=== PATIENT | male | born 1945 | race Caucasian/White ===

== ENCOUNTER 2017-01-07 20:49 | Inpatient (IN) | payer MEDICARE, OTHER ==
[2017-01-07] MEDS ORDERED: NS 0.9% 1000 ML* 1,000 ML IV ONE (21:26)
[2017-01-07 22:04] LABS: Hematocrit 40 % (42-52); Mean Corpuscular HGB Conc 32 g/dl (31-36); Mean Corpuscular Hemoglobin 29 pg (27-31); Mean Corpuscular Volume 90 fL (80-94); Mean Platelet Volume 9 um3 (7.4-10.4); Red Blood Count 4.45 10^6/ul (4.0-5.4); Red Cell Distribution Width 15 % (10.5-15); White Blood Count 12.3 10^3/ul (3.5-10.8)
--- NOTE | 2017-01-07 22:09 | RAD ---
INDICATION: RIGHT lower quadrant abdominal pain. History of chronic lymphoid leukemia. COMPARISON: February 28, 2014 CT. TECHNIQUE: Multidetector CT images were obtained from the lung bases to the ischial tuberosities. Evaluation of the viscera is limited without IV contrast. Multiplanar reformation. REPORT: Minimal bibasilar atelectasis or pleural-parenchymal scarring. Coronary artery calcifications. Unremarkable liver. Largely decompressed gallbladder without CT abnormality. Negative for biliary dilatation. Unremarkable pancreas. 12 cm cephalocaudal spleen decreased from 16 cm on the prior exam. Unremarkable upper GI and small bowel. Enteric contrast extends to the proximal transverse colon. Severely dilated retrocecal appendix measuring up to 2.5 cm diameter. No appendicolith visualized. Severe periappendiceal inflammatory stranding including a small volume of RIGHT lower quadrant fluid. 3.6 cm AP by 2.1 cm transverse by 5.8 cm cephalocaudal early loculated fluid collection visualized inferior and anterior to the appendix consistent with early periappendiceal abscess. A punctate focus of gas is noted within the loculated collection. Mild diverticulosis of the sigmoid colon without acute acute inflammatory change. Negative for significant hernias. Normal adrenal glands. Unremarkable kidneys, nondilated ureters, and urinary bladder. Symmetric seminal vesicles. Subcentimeter short axis RIGHT lower quadrant mesenteric lymph nodes. Negative for lymphadenopathy. Atherosclerotic calcification of normal diameter abdominal aorta. 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 Lumbar sacral spine degenerative spondylosis and facet joint osteoarthritis. Negative for suspicious focal osseous lesions. Spangler images saved on the [facility] [place] PACS. IMPRESSION: 1. Acute appendicitis with suggestion of associated early small volume of periappendiceal abscess. Negative for resulting bowel obstruction. 2. Resolution of previous splenomegaly. 3. Negative for lymphadenopathy.
[2017-01-07 22:18] LABS: Albumin 3.4 g/dL (3.2-5.2); BUN/Creatinine Ratio 18.8 (8-20); C Reactive Protein 60.2 mg/L (< 5.00); Calcium 8.7 mg/dL (8.6-10.3); EGFR African American 93.9 (>60); Globulin 2.6 g/dL (2-4); Total Bilirubin 0.6 mg/dL (0.2-1.0)
[2017-01-07] MEDS ORDERED: Albuterol/Ipratropium NEB.SOL* Albuterol 2.5 MG/Ipratropium 0.5 MG 3 ML INH PRN (22:46)
[2017-01-07] MEDS ORDERED: Albuterol HFA INHALER* 8 gm MDI INH PRN (22:49)
[2017-01-07] MEDS ORDERED: Ondansetron INJ* 2 MG/ML VIAL IV PRN (22:51)
--- NOTE | 2017-01-07 22:55 | ED ---
Remedios Joiner Erika, scribed for Emigdio Berkowitz MD on 01/07/17 at 2152 . Abdominal Pain/Male - HPI Summary HPI Summary: Patient is a 71-year-old male presenting to the ED with a CC of abdominal pain. Patient reports that he developed intermittent diffuse abdominal pain and bloating 1 week ago, which has been gradually worsening since. Today, patient noticed that the worst pain to palpation was at the RLQ. He rates pain a 3/10 at rest, but a 6/10 with palpation of the RLQ. Patient also reports that he was constipated this past week, with his first normal BM this morning. Pt states a temperature max of 99.5. He denies flank pain, nausea, blood in stools, and burning with urination. He does report chronic frequent urination due to BPH. He denies Hx abdominal surgeries. FHx aortic aneurysm. - History of Current Complaint Chief Complaint: EDAbdPain Stated Complaint: ABD PAIN/POSS FEVER Time Seen by Provider: 01/07/17 21:03 Hx Obtained From: Patient Onset/Duration: Gradual Onset, Lasting Weeks - 1 week, Still Present Timing: Constant Severity Initially: Mild Severity Currently: Moderate Pain Intensity: 3 Pain Scale Used: 0-10 Numeric Location: Diffuse, Other - worse at RLQ Aggravating Factor(s): Other: - palpation Associated Signs And Symptoms: Positive: Constipation. Negative: Blood in Stool , Nausea - Allergies/Home Medications Allergies/Adverse Reactions: Allergies Allergy/AdvReac Type Severity Reaction Status Date / Time Allopurinol Allergy Rash Verified 01/07/17 21:15 Penicillins Allergy Rash Verified 01/07/17 21:15 Shellfish Allergy Allergy Hives/Diff. Verified 01/07/17 21:15 Breathing/I tching contrast dye Allergy Hives/Diff. Uncoded 01/07/17 21:15 Breathing/I tching PMH/Surg Hx/FS Hx/Imm Hx Endocrine/Hematology History: Reports: Hx Blood Disorders - CLL Respiratory History: Reports: Hx Chronic Bronchitis, Hx Sleep Apnea Musculoskeletal History: Reports: Hx Arthritis Sensory History: Reports: Hx Contacts or Glasses Opthamlomology History: Reports: Hx Contacts or Glasses Psychiatric History: Reports: Hx Anxiety - Cancer History Cancer Type, Location and Year: CLL Dx 2000 - Surgical History Surgery Procedure, Year, and Place: broken leg 84 Hx Anesthesia Reactions: No Infectious Disease History: No Infectious Disease History: Reports: Traveled Outside the [place] in Last 30 Days - [place] - Family History Known Family History: Positive: Cardiac Disease, Diabetes, Other - CVA - Social History Occupation: Retired Alcohol Use: None Hx Substance Use: No Substance Use Type: Reports: None Hx Tobacco Use: Yes Smoking Status (MU): Former Smoker Type: Cigarettes Amount Used/How Often: 1ppd Length of Time of Smoking/Using Tobacco: 50 years Have You Smoked in the Last Year: No Review of Systems Gastrointestinal: Other - constipation Positive: Abdominal Pain. Negative: Nausea Positive: frequency - baseline. Negative: dysuria, flank pain All Other Systems Reviewed And Are Negative: Yes Physical Exam Triage Information Reviewed: Yes Vital Signs On Initial Exam: Initial Vitals Temp Pulse Resp BP Pulse Ox 99.8 F 75 15 152/78 97 01/07/17 20:52 01/07/17 20:52 01/07/17 20:52 01/07/17 20:52 01/07/17 20:52 Vital Signs Reviewed: Yes Appearance: Positive: Well-Appearing, No Pain Distress Skin: Positive: Warm, Skin Color Reflects Adequate Perfusion, Dry Head/Face: Positive: Normal Head/Face Inspection Eyes: Positive: EOMI, AISHWARYA ENT: Positive: Normal ENT inspection Neck: Positive: Supple, Nontender Respiratory/Lung Sounds: Positive: Clear to Auscultation, Breath Sounds Present Cardiovascular: Positive: RRR Abdomen Description: Positive: Soft, Other: - Tender RLQ and right mid abdomen Bowel Sounds: Positive: Present Musculoskeletal: Positive: Normal, Strength/ROM Intact Neurological: Positive: Normal, Sensory/Motor Intact, Alert, Oriented to Person Place, Time Psychiatric: Positive: Affect/Mood Appropriate Diagnostics - Vital Signs Vital Signs Temp Pulse Resp BP Pulse Ox 01/07/17 20:52 99.8 F 75 15 152/78 97 - Laboratory Lab Results: Lab Results 01/07/17 01/07/17 01/07/17 Range/Units 21:50 21:50 21:50 WBC 12.3 H (3.5-10.8) 10^3/ul RBC 4.45 (4.0-5.4) 10^6/ul Hgb 13.0 L (14.0-18.0) g/dl Hct 40 L (42-52) % MCV 90 (80-94) fL MCH 29 (27-31) pg MCHC 32 (31-36) g/dl RDW 15 (10.5-15) % Plt Count 150 (150-450) 10^3/ul MPV 9 (7.4-10.4) um3 Neut % (Auto) 77.4 (38-83) % Lymph % (Auto) 13.4 L (25-47) % Traverse % (Auto) 6.7 (1-9) % Eos % (Auto) 1.9 (0-6) % Baso % (Auto) 0.6 (0-2) % Absolute Neuts (auto) 9.5 H (1.5-7.7) 10^3/ul Absolute Lymphs (auto) 1.6 (1.0-4.8) 10^3/ul Absolute Monos (auto) 0.8 (0-0.8) 10^3/ul Absolute Eos (auto) 0.2 (0-0.6) 10^3/ul Absolute Basos (auto) 0.1 (0-0.2) 10^3/ul Absolute Nucleated RBC 0.01 10^3/ul Nucleated RBC % 0.1 INR (Anticoag Therapy) 0.99 (0.89-1.11) APTT 30.0 (26.0-36.3) seconds Sodium 138 (133-145) mmol/L Potassium 4.0 (3.5-5.0) mmol/L Chloride 106 (101-111) mmol/L Carbon Dioxide 24 (22-32) mmol/L Anion Gap 8 (2-11) mmol/L BUN 19 (6-24) mg/dL Creatinine 1.01 (0.67-1.17) mg/dL Est GFR ( Amer) 93.9 (>60) Est GFR (Non-Af Amer) 73.0 (>60) BUN/Creatinine Ratio 18.8 (8-20) Glucose 89 (70-100) mg/dL Lactic Acid (0.5-2.0) mmol/L Calcium 8.7 (8.6-10.3) mg/dL Total Bilirubin 0.60 (0.2-1.0) mg/dL AST 17 (13-39) U/L ALT 16 (7-52) U/L Alkaline Phosphatase 88 (34-104) U/L C-Reactive Protein 60.20 H (< 5.00) mg/L Total Protein 6.0 L (6.4-8.9) g/dL Albumin 3.4 (3.2-5.2) g/dL Globulin 2.6 (2-4) g/dL Albumin/Globulin Ratio 1.3 (1-3) Lipase 17 (11.0-82.0) U/L 01/07/17 Range/Units 21:50 WBC (3.5-10.8) 10^3/ul RBC (4.0-5.4) 10^6/ul Hgb (14.0-18.0) g/dl Hct (42-52) % MCV (80-94) fL MCH (27-31) pg MCHC (31-36) g/dl RDW (10.5-15) % Plt Count (150-450) 10^3/ul MPV (7.4-10.4) um3 Neut % (Auto) (38-83) % Lymph % (Auto) (25-47) % Traverse % (Auto) (1-9) % Eos % (Auto) (0-6) % Baso % (Auto) (0-2) % Absolute Neuts (auto) (1.5-7.7) 10^3/ul Absolute Lymphs (auto) (1.0-4.8) 10^3/ul Absolute Monos (auto) (0-0.8) 10^3/ul Absolute Eos (auto) (0-0.6) 10^3/ul Absolute Basos (auto) (0-0.2) 10^3/ul Absolute Nucleated RBC 10^3/ul Nucleated RBC % INR (Anticoag Therapy) (0.89-1.11) APTT (26.0-36.3) seconds Sodium (133-145) mmol/L Potassium (3.5-5.0) mmol/L Chloride (101-111) mmol/L Carbon Dioxide (22-32) mmol/L Anion Gap (2-11) mmol/L BUN (6-24) mg/dL Creatinine (0.67-1.17) mg/dL Est GFR ( Amer) (>60) Est GFR (Non-Af Amer) (>60) BUN/Creatinine Ratio (8-20) Glucose (70-100) mg/dL Lactic Acid 0.7 (0.5-2.0) mmol/L Calcium (8.6-10.3) mg/dL Total Bilirubin (0.2-1.0) mg/dL AST (13-39) U/L ALT (7-52) U/L Alkaline Phosphatase (34-104) U/L C-Reactive Protein (< 5.00) mg/L Total Protein (6.4-8.9) g/dL Albumin (3.2-5.2) g/dL Globulin (2-4) g/dL Albumin/Globulin Ratio (1-3) Lipase (11.0-82.0) U/L Result Diagrams: 01/07/17 21:50 01/07/17 21:50 Lab Statement: Any lab studies that have been ordered have been reviewed, and results considered in the medical decision making process. - CT CT A/P W/O CT Interpretation Completed By: Radiologist - IMPRESSION: 1. Acute appendicitis with suggestion of associated early small volume of periappendiceal abscess. Negative for resulting bowel obstruction. 2. Resolution of previous splenomegaly. 3. Negative for lymphadenopathy. Re-Evaluation - Re-Evaluation First Eval Re-Evaluation Time: 22:37 Comment: Discussed results and need for appendectomy Abdominal Pain Fem Course/Dx - Course Course Of Treatment: NO CRITICAL CARE TIME Assessment/Plan: WELL I ED. DISCUSSED RESULTS WITH PATIENT/FAMILY. ADMIT SURGERY STABLE. - Diagnoses Provider Diagnoses: Appendicitis with abscess - Provider Notifications Discussed Care Of Patient With: Dr. Patrick (surgery) at 22:29 - discussed CT finding of appendicitis and patient's history. will admit to surgery. Discharge - Discharge Plan Condition: Stable Disposition: ADMITTED TO [facility] documentation as recorded by the Remedios morales Erika accurately reflects the service I personally performed and the decisions made by me, Emigdio Berkowitz MD.
[2017-01-07] MEDS: Ciprofloxacin 400MG IVPREMIX(* 400 MG/200 ML BAG IVPB SCH (23:57)
[2017-01-07] MEDS: Mometasone/Formoter 100/5 MDI INH SCH (23:58)
[2017-01-08] MEDS: Morphine INJ* 4 MG/ML 1 ML SYRINGE IV PRN ×2 (00:03→04:07)
[2017-01-08 00:18] LABS: Urine Bilirubin Negative (Negative); Urine Glucose Negative (Negative); Urine Nitrite Negative (Negative)
[2017-01-08] MEDS: metroNIDAZOLE IV 500 MG/100ML* 500 MG/100 ML BAG IVPB SCH ×4 (01:07→17:39)
[2017-01-08] MEDS: Mometasone/Formoter 100/5 MDI INH SCH ×2 (08:08→20:37)
--- NOTE | 2017-01-08 08:35 | RAD ---
Indication: Preoperative assessment for appendicitis. Occasional shortness of breath. Comparison: January 07, [address] Technique: Upright AP 2305 hours Report: Minimal linear atelectasis at the peripheral LEFT mid lung zone. Negative for pleural effusion or pneumothorax. Costochondral calcifications noted most prominent at the first ribs. The heart, pulmonary vasculature, and mediastinal contours are unremarkable. Negative for free air beneath the diaphragm. IMPRESSION: No evidence for acute intrathoracic disease.
[2017-01-08] MEDS ORDERED: Ketorolac INJ* 30 MG/ML 1 ML VIAL IV PRN (09:13)
[2017-01-08 10:18] LABS: Hematocrit 39 % (42-52); Hemoglobin 12.5 g/dl (14.0-18.0); Mean Corpuscular HGB Conc 32 g/dl (31-36); Mean Corpuscular Hemoglobin 29 pg (27-31); Mean Corpuscular Volume 91 fL (80-94); Mean Platelet Volume 9 um3 (7.4-10.4); Red Blood Count 4.28 10^6/ul (4.0-5.4); Red Cell Distribution Width 15 % (10.5-15); White Blood Count 12.2 10^3/ul (3.5-10.8)
[2017-01-08 10:35] LABS: BUN/Creatinine Ratio 13.9 (8-20); Calcium 8.3 mg/dL (8.6-10.3); EGFR African American 93.9 (>60); Potassium 4.2 mmol/L (3.5-5.0)
[2017-01-08] MEDS: Ciprofloxacin 400MG IVPREMIX(* 400 MG/200 ML BAG IVPB SCH ×2 (11:28→23:54)
--- NOTE | 2017-01-08 13:04 | HP ---
HISTORY AND PHYSICAL: DATE OF ADMISSION: 01/08/17 CHIEF COMPLAINT: Right lower quadrant abdominal pain. HISTORY OF PRESENT ILLNESS: This is a 71-year-old gentleman with a history of coronary artery disease, COPD, and CLL, who presented to the [facility] Emergency Room with a 6-day history of abdominal pain, progressive in nature, localized into the right lower quadrant, associated with low-grade fever , loss of appetite, no nausea, no vomiting, no diarrhea or constipation. The patient had pain initiating when he was driving back from [facility], last Monday. He reports that he sometimes has back pain if he is riding in the car for long periods of time. This pain seemed to be in the abdomen, however, and he then thought it may be related to constipation, which he has had occasionally in the past. He reports that the pain was not severe enough for him to take any pain medication, but he did try taking Pepto-Bismol without relief. Yesterday, his pain seemed to be more severe and seemed more localized to the right lower quadrant. He had noted a temperature of 99.5 as well. He looked up the symptoms and was worried he had appendicitis, so went to the emergency room. In the emergency room, he was evaluated by Dr. Berkowitz. Due to history of allergic reaction to CONTRAST DYE, he had a noncontrast CT of the abdomen and pelvis. The scan showed evidence of appendicitis with periappendiceal abscess and there was a focus of gas within the loculated collection. The collection was 3.6 x 2[address] Berkowitz requested surgical admission for this patient. PAST MEDICAL HISTORY: Significant for COPD, coronary artery disease, angina, CLL, right leg fracture, obesity, obstructive sleep apnea, depression, spinal stenosis, hyperlipidemia, hypertension, osteoarthritis, BPH. PAST SURGICAL HISTORY: He had ORIF of the right leg. MEDICATIONS: 1. Aspirin. 2. Clonazepam. 3. Zolpidem. 4. Viagra. 5. Nitroglycerin. ALLERGIES: ALLOPURINOL has caused a rash; PENICILLIN caused a rash and swelling ; SHELLFISH causes hives, difficulty breathing, and itching; CONTRAST DYE causes hives, difficulty breathing, and itching. FAMILY HISTORY: Father had abdominal aortic aneurysm and is alive. His mother in her 80s of unknown causes. SOCIAL HISTORY: He has a 40- to 19-pojn-owbs history of smoking. He quit 17 years ago. He has a history of alcohol abuse and quit 12 years ago. He denies any drug use. REVIEW OF SYSTEMS: Constitutional: Low-grade fevers, no chills, no weight loss. Respiratory: Wheezing, coughing, and smoking history. Cardiac: Angina for which he has been seeing Dr. Chapman and had been prescribed nitroglycerin. He uses nitroglycerin p.r.n. and last used it 2 days ago. At present, he is having no chest pain. Gastrointestinal: He had a history of colonoscopy in 2003, which was normal. He has done fecal occult blood testing since which he reports has been normal. Others symptoms as above. He had a bowel movement yesterday which was normal with no blood. : The patient reports a history of enlarged prostate. He gets up frequently in the night to urinate. Endocrine : He denies thyroid disease or diabetes. Hematologic: As above. Musculoskeletal: As above. CAPTAIN OF GUARDS: He denies stroke, seizures, or neurologic symptoms. PHYSICAL EXAMINATION VITAL SIGNS: He is 5 feet 8 inches tall, 230 pounds, BMI is 35. He has temperature of 98.4, blood pressure of 123/67, pulse is 69, respirations 20, O2 sat 93% on room air. HEENT: Head is normocephalic and atraumatic. His sclerae are anicteric. His mucous membranes are moist. He has no otorrhea, no rhinorrhea. Dentition is poor with chipped teeth and some missing teeth, but no loose teeth. NECK: Symmetrical with midline trachea. No palpable lymphadenopathy or masses. LUNGS: Clear bilaterally with expiratory wheezes bilaterally. No rales or rhonchi. HEART: Regular S1 and S2 with no appreciable murmurs, rubs, or gallops. ABDOMEN: Without scars and it is obese. Bowel sounds are present. It is nondistended, it is soft. There is tenderness in the right lower quadrant with some firmness but no discrete mass. He has no Rovsing's sign. EXTREMITIES: Warm without clubbing, cyanosis, or edema. DIAGNOSTIC STUDIES/LAB DATA: Notable for a WBC of 12.3, hemoglobin 13, hematocrit of 40, platelets 150. Chemistries normal except for his total protein low at 6. His C-reactive protein is 60. Coagulation profile showed normal INR and PTT. Urinalysis was negative for infection. CT scan findings were as reported above. IMPRESSION: The patient is a 71-year-old gentleman with chronic obstructive pulmonary disease, coronary artery disease, history of chronic lymphocytic leukemia, now with what appears to be missed appendicitis with early abscess formation noted on the CT scan. He is not in need of any emergent surgery. I believe he will best be managed nonoperatively. PLAN/RECOMMENDATIONS: NPO. Ciprofloxacin and metronidazole IV. IV hydration. IV analgesics. DVT prophylaxis. Consult hospitalist for assistance in management of cardiopulmonary disease and optimization should the patient fail nonoperative treatment. Ultimately, he may require percutaneous drainage of this developing abscess. I discussed the plan with the patient, who had all questions answered. He stated his understanding and was in agreement. [id number]/CPS #: [id number] MTDD
[2017-01-08] MEDS ORDERED: Albuterol HFA INHALER* 8 gm MDI INH PRN (13:20)
[2017-01-08] MEDS ORDERED: clonazePAM TAB(*) 0.5 MG PO PRN (13:20)
[2017-01-08] MEDS ORDERED: Saline NASAL SPRAY 0.65%* BTL BOTH NARES PRN (13:20)
[2017-01-08] MEDS ORDERED: Zolpidem TAB* 10 MG PO PRN (13:20)
[2017-01-08] MEDS: Heparin VIAL(*) 5000 UNITS/ML VIAL (FIVE THOUSAND) SUBCUT SCH ×2 (14:06→22:34)
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
[2017-01-09] MEDS: metroNIDAZOLE IV 500 MG/100ML* 500 MG/100 ML BAG IVPB SCH ×4 (00:59→18:01)
[2017-01-09 05:37] LABS: HDL Cholesterol 37.6 mg/dL
[2017-01-09] MEDS: Heparin VIAL(*) 5000 UNITS/ML VIAL (FIVE THOUSAND) SUBCUT SCH ×3 (05:54→21:40)
[2017-01-09] MEDS: Ascorbic Acid TAB* 500 MG PO SCH (08:19)
[2017-01-09] MEDS: Cholecalciferol TAB* 1000 UNITS PO SCH (08:20)
[2017-01-09] MEDS: Multivitamins/Minerals TAB PO SCH (08:20)
[2017-01-09] MEDS: Atorvastatin* 40 MG TAB PO SCH (08:29)
[2017-01-09] MEDS: Mometasone/Formoter 100/5 MDI INH SCH ×2 (08:30→19:35)
--- NOTE | 2017-01-09 11:03 | SURGPN ---
Subjective - Introduction -: Reports doing well, less pain. Feels a little hungry. Passing flatus, denies N/V , fever or chills. - Medications -: Active Medications Generic Name Dose Route Start Last Admin Trade Name Freq PRN Reason Stop Dose Admin Albuterol 2 puff 01/07/17 22:49 Ventolin Hfa Inhaler* INH [id number] AWAKE PRN DYSPNEA Albuterol 2 puff 01/08/17 13:20 Ventolin Hfa Inhaler* INH Q6HR PRN SOB/WHEEZING Albuterol/Ipratropium 1 neb 01/07/17 22:46 Duoneb (Albuterol 2.5 Mg/Ipratropium 0.5 Mg) INH [id number] AWAKE PRN DYSPNEA Ascorbic Acid 500 mg 01/09/17 09:00 01/09/17 08:19 Vitamin C Tab* PO Not Given DAILY [facility] Atorvastatin Calcium 40 mg 01/09/17 09:00 01/09/17 08:29 Lipitor* PO Not Given DAILY [facility] Cholecalciferol 2,000 units 01/09/17 09:00 01/09/17 08:20 Vitamin D Tab* PO Not Given DAILY [facility] Clonazepam 0.5 mg 01/08/17 13:20 Klonopin Tab(*) PO DAILY PRN ANXIETY - SEVERE Heparin Sodium (Porcine) 5,000 units 01/08/17 14:00 01/09/17 05:54 Heparin Vial(*) SUBCUT 5,000 units Q8HR [facility] Administration Ciprofloxacin/Dextrose 400 mg in 200 mls @ 200 mls/hr 01/07/17 23:30 23:54 Cipro 400 Mg Ivpremix(*) IVPB 200 mls/hr Q12H [facility] Administration Lactated Ringer's 1,000 mls @ 150 mls/hr 01/07/17 23:00 01/09/17 04:33 Lactated Ringers 1000 Ml Bag* IV 150 mls/hr PER RATE [facility] Administration Metronidazole/Sodium Chloride 500 mg in 100 mls @ 100 mls/hr 01/08/17 00:00 01/09/17 05:54 Flagyl 500 Mg Ivpb* IVPB 100 mls/hr Q6H [facility] Administration Ketorolac Tromethamine 15 mg 01/08/17 09:13 Toradol Inj* IV 01/10/17 09:14 Q6H PRN PAIN Mometasone Furoate/Formoterol Fumar 2 puff 01/07/17 23:00 01/09/17 08:30 Dulera 100/5 Mdi* INH 2 puff BID [facility] Administration Morphine Sulfate 4 mg 01/07/17 22:52 01/08/17 04:07 Morphine Inj (Syringe)* IV 4 mg Q4H PRN Administration PAIN Multivitamins/Minerals 1 tab 01/09/17 09:00 01/09/17 08:20 Theragran/Minerals Tab* PO Not Given DAILY [facility] Ondansetron HCl 4 mg 01/07/17 22:51 Zofran Inj* IV Q4H PRN NAUSEA Sodium Chloride 2 spray 01/08/17 13:20 Sodium Chloride 0.65% Nasal [place]* BOTH NARES DAILY PRN CONGESTION Zolpidem Tartrate 10 mg 01/08/17 13:20 Ambien Tab* PO BEDTIME PRN ANXIETY/INSOMNIA Objective - Objective -: Awake and alert, sitting on bed, appears comfortable. - Intake and Output -: Intake & Output 01/07/17 01/08/17 01/09/17 01/10/17 06:59 06:59 06:59 06:59 Intake Total 4398 Output Total 1000 Balance 3398 Intake: IV Fluids 3236 LR 2827 abx 409 IVPB 537 abx 537 Oral 625 Output: Urine 1000 Other: Estimated Void Large # Voids 1 1 Surgical Physical Exam - Comments -: VSS, afebrile. Lungs CTA bilat. Heart RRR, no murmurs Abdomen soft, non-distended. Mild RLQ tenderness, but no guarding or rebound. Ext. no edema Assessment and Plan - Assessment -: A 71 y/o with perforated appendicitis, doing well on IV antibiotics and bowel rest. - Plan Additional Comments: Continue IV Abx Ambulate as tolerated. Will d/w Dr. Patrick if it's OK to start patient on sips of clears today check labs in AM
[2017-01-09] MEDS: Ciprofloxacin 400MG IVPREMIX(* 400 MG/200 ML BAG IVPB SCH ×2 (11:24→23:23)
--- NOTE | 2017-01-09 19:08 | PN ---
Subjective Date of Service: 01/09/17 Interval History: Pt examined today at the bedside. He states that his abdomen is feeling better. Denies chest pain and states his breathing is better. Denies fever or chills. ROS-denies fever, denies chills, denies chest pain, denies sob, admits to abdominal pain, denies nausea, denies vomiting, denies lightheadedness, denies loc, review of 11 systems completed all others negative, Objective Active Medications: Albuterol (Ventolin Hfa Inhaler*) 2 puff INH [id number] AWAKE PRN PRN Reason: DYSPNEA Albuterol (Ventolin Hfa Inhaler*) 2 puff INH Q6HR PRN PRN Reason: SOB/WHEEZING Albuterol/Ipratropium (Duoneb (Albuterol 2.5 Mg/Ipratropium 0.5 Mg)) 1 neb INH [id number] AWAKE PRN PRN Reason: DYSPNEA Ascorbic Acid (Vitamin C Tab*) 500 mg PO DAILY [facility] Last Admin: 01/09/17 08:19 Dose: Not Given Atorvastatin Calcium (Lipitor*) 40 mg PO DAILY [facility] Last Admin: 01/09/17 08:29 Dose: Not Given Cholecalciferol (Vitamin D Tab*) 2,000 units PO DAILY [facility] Last Admin: 01/09/17 08:20 Dose: Not Given Clonazepam (Klonopin Tab(*)) 0.5 mg PO DAILY PRN PRN Reason: ANXIETY - SEVERE Heparin Sodium (Porcine) (Heparin Vial(*)) 5,000 units SUBCUT Q8HR [facility] Last Admin: 01/09/17 13:55 Dose: 5,000 units Ciprofloxacin/Dextrose (Cipro 400 Mg Ivpremix(*)) 400 mg in 200 mls @ 200 mls/ hr IVPB Q12H [facility] Last Admin: 01/09/17 11:24 Dose: 200 mls/hr Lactated Ringer's (Lactated Ringers 1000 Ml Bag*) 1,000 mls @ 150 mls/hr IV PER RATE [facility] Last Admin: 01/09/17 15:47 Dose: 150 mls/hr Metronidazole/Sodium Chloride (Flagyl 500 Mg Ivpb*) 500 mg in 100 mls @ 100 mls /hr IVPB Q6H [facility] Last Admin: 01/09/17 18:01 Dose: 100 mls/hr Ketorolac Tromethamine (Toradol Inj*) 15 mg IV Q6H PRN PRN Reason: PAIN Stop: 01/10/17 09:14 Mometasone Furoate/Formoterol Fumar (Dulera 100/5 Mdi*) 2 puff INH BID [facility] Last Admin: 01/09/17 08:30 Dose: 2 puff Mometasone Furoate/Formoterol Fumar (Dulera 200/5 Mdi*) 2 puff INH BID [facility] Morphine Sulfate (Morphine Inj (Syringe)*) 4 mg IV Q4H PRN PRN Reason: PAIN Last Admin: 01/08/17 04:07 Dose: 4 mg Multivitamins/Minerals (Theragran/Minerals Tab*) 1 tab PO DAILY [facility] Last Admin: 01/09/17 08:20 Dose: Not Given Ondansetron HCl (Zofran Inj*) 4 mg IV Q4H PRN PRN Reason: NAUSEA Sodium Chloride (Sodium Chloride 0.65% Nasal [place]*) 2 spray BOTH NARES DAILY PRN PRN Reason: CONGESTION Tiotropium [place] (Spiriva Cap.Inh*) 1 cap INH DAILY [facility] Zolpidem Tartrate (Ambien Tab*) 10 mg PO BEDTIME PRN PRN Reason: ANXIETY/INSOMNIA Vital Signs 01/08/17 01/08/17 01/08/17 19:15 20:50 23:30 Temperature 98.8 F 98.5 F Pulse Rate 71 71 Respiratory 16 16 16 Rate Blood Pressure 119/63 126/61 (mmHg) O2 Sat by Pulse 96 95 Oximetry 01/09/17 01/09/17 01/09/17 03:31 08:04 08:22 Temperature 98.6 F 98.0 F Pulse Rate 66 66 Respiratory 17 18 16 Rate Blood Pressure 124/73 118/70 (mmHg) O2 Sat by Pulse 96 96 Oximetry 01/09/17 01/09/17 12:00 15:30 Temperature 98.3 F 98.1 F Pulse Rate 64 63 Respiratory 18 17 Rate Blood Pressure 120/63 125/66 (mmHg) O2 Sat by Pulse 98 97 Oximetry Oxygen Devices in Use Now: None Appearance: 71 y/o male patient NAD, Eyes: No Scleral Icterus, PERRLA Ears/Nose/Mouth/Throat: NL Teeth, Lips, Gums Neck: NL Appearance and Movements; NL JVP Respiratory: Symmetrical Chest Expansion and Respiratory Effort, - - wheezing heard in lower lobes, Cardiovascular: NL Sounds; No Murmurs; No JVD Abdominal: - - tenderness to RLQ, bowel sounds present Extremities: No Edema Skin: No Rash or Ulcers Neurological: Alert and Oriented x 3 Lines/Tubes/Other Access: Clean, Dry and Intact Peripheral IV Result Diagrams: 01/08/17 09:50 01/08/17 09:50 Additional Lab and Data: Lab Results 01/07/17 01/07/17 01/07/17 Range/Units 21:50 21:50 21:50 WBC 12.3 H (3.5-10.8) 10^3/ul RBC 4.45 (4.0-5.4) 10^6/ul Hgb 13.0 L (14.0-18.0) g/dl Hct 40 L (42-52) % MCV 90 (80-94) fL MCH 29 (27-31) pg MCHC 32 (31-36) g/dl RDW 15 (10.5-15) % Plt Count 150 (150-450) 10^3/ul MPV 9 (7.4-10.4) um3 Neut % (Auto) 77.4 (38-83) % Lymph % (Auto) 13.4 L (25-47) % [place] % (Auto) 6.7 (1-9) % Eos % (Auto) 1.9 (0-6) % Baso % (Auto) 0.6 (0-2) % Absolute Neuts (auto) 9.5 H (1.5-7.7) 10^3/ul Absolute Lymphs (auto) 1.6 (1.0-4.8) 10^3/ul Absolute Monos (auto) 0.8 (0-0.8) 10^3/ul Absolute Eos (auto) 0.2 (0-0.6) 10^3/ul Absolute Basos (auto) 0.1 (0-0.2) 10^3/ul Absolute Nucleated RBC 0.01 10^3/ul Nucleated RBC % 0.1 INR (Anticoag Therapy) 0.99 (0.89-1.11) APTT 30.0 (26.0-36.3) seconds Sodium 138 (133-145) mmol/L Potassium 4.0 (3.5-5.0) mmol/L Chloride 106 (101-111) mmol/L Carbon Dioxide 24 (22-32) mmol/L Anion Gap 8 (2-11) mmol/L BUN 19 (6-24) mg/dL Creatinine 1.01 (0.67-1.17) mg/dL Est GFR ( Amer) 93.9 (>60) Est GFR (Non-Af Amer) 73.0 (>60) BUN/Creatinine Ratio 18.8 (8-20) Glucose 89 (70-100) mg/dL Lactic Acid (0.5-2.0) mmol/L Calcium 8.7 (8.6-10.3) mg/dL Total Bilirubin 0.60 (0.2-1.0) mg/dL AST 17 (13-39) U/L ALT 16 (7-52) U/L Alkaline Phosphatase 88 (34-104) U/L C-Reactive Protein 60.20 H (< 5.00) mg/L Total Protein 6.0 L (6.4-8.9) g/dL Albumin 3.4 (3.2-5.2) g/dL Globulin 2.6 (2-4) g/dL Albumin/Globulin Ratio 1.3 (1-3) Lipase 17 (11.0-82.0) U/L / Range/Units 21:50 WBC (3.5-10.8) 10^3/ul RBC (4.0-5.4) 10^6/ul Hgb (14.0-18.0) g/dl Hct (42-52) % MCV (80-94) fL MCH (27-31) pg MCHC (31-36) g/dl RDW (10.5-15) % Plt Count (150-450) 10^3/ul MPV (7.4-10.4) um3 Neut % (Auto) (38-83) % Lymph % (Auto) (25-47) % [place] % (Auto) (1-9) % Eos % (Auto) (0-6) % Baso % (Auto) (0-2) % Absolute Neuts (auto) (1.5-7.7) 10^3/ul Absolute Lymphs (auto) (1.0-4.8) 10^3/ul Absolute Monos (auto) (0-0.8) 10^3/ul Absolute Eos (auto) (0-0.6) 10^3/ul Absolute Basos (auto) (0-0.2) 10^3/ul Absolute Nucleated RBC 10^3/ul Nucleated RBC % INR (Anticoag Therapy) (0.89-1.11) APTT (26.0-36.3) seconds Sodium (133-145) mmol/L Potassium (3.5-5.0) mmol/L Chloride (101-111) mmol/L Carbon Dioxide (22-32) mmol/L Anion Gap (2-11) mmol/L BUN (6-24) mg/dL Creatinine (0.67-1.17) mg/dL Est GFR ( Amer) (>60) Est GFR (Non-Af Amer) (>60) BUN/Creatinine Ratio (8-20) Glucose (70-100) mg/dL Lactic Acid 0.7 (0.5-2.0) mmol/L Calcium (8.6-10.3) mg/dL Total Bilirubin (0.2-1.0) mg/dL AST (13-39) U/L ALT (7-52) U/L Alkaline Phosphatase (34-104) U/L C-Reactive Protein (< 5.00) mg/L Total Protein (6.4-8.9) g/dL Albumin (3.2-5.2) g/dL Globulin (2-4) g/dL Albumin/Globulin Ratio (1-3) Lipase (11.0-82.0) U/L Assess/Plan/Problems-Billing Assessment: 71 y/o [place] [facility] [place] [place] - Patient Problems (1) Appendicitis Current Visit: Yes Status: Acute Priority: High Comment: IV abx, management per surgery (2) HTN (hypertension) Current Visit: Yes Status: Acute Priority: High Comment: Bp stable with no medications, monitor, start BP meds if needed (3) HLD (hyperlipidemia) Current Visit: Yes Status: Acute Priority: High Comment: LDL 101 continue statin follow with PCP (4) COPD (chronic obstructive pulmonary disease) Current Visit: Yes Status: Acute Priority: High Comment: Wheezing today, continue nebs prn, dulera and maurilio, (5) Anxiety Current Visit: Yes Status: Acute Priority: High Comment: Continue klonopin , (6) Insomnia Current Visit: Yes Status: Acute Priority: High Comment: PRN ambien ordered (7) FEN Current Visit: Yes Status: Acute Priority: High Comment: per surgery follow bmp (8) DVT prophylaxis Current Visit: Yes Status: Acute Priority: High Comment: per surgery (9) Full code status Current Visit: Yes Status: Acute Priority: High Status and Disposition: Per surgery,
[2017-01-09] MEDS: Mometasone/Formoter 200/5 MDI INH SCH (21:38)
[2017-01-10] MEDS: metroNIDAZOLE IV 500 MG/100ML* 500 MG/100 ML BAG IVPB SCH ×4 (00:33→17:57)
[2017-01-10 05:03] LABS: Hematocrit 36 % (42-52); Hemoglobin 12.2 g/dl (14.0-18.0); Mean Corpuscular HGB Conc 34 g/dl (31-36); Mean Corpuscular Hemoglobin 30 pg (27-31); Mean Corpuscular Volume 89 fL (80-94); Mean Platelet Volume 8 um3 (7.4-10.4); Red Blood Count 4.07 10^6/ul (4.0-5.4); Red Cell Distribution Width 15 % (10.5-15); White Blood Count 7.2 10^3/ul (3.5-10.8)
[2017-01-10 05:49] LABS: BUN/Creatinine Ratio 12.2 (8-20); Calcium 8.8 mg/dL (8.6-10.3); EGFR African American 97.2 (>60); EGFR Non-African American 75.6 (>60); Potassium 3.9 mmol/L (3.5-5.0)
[2017-01-10] MEDS: Heparin VIAL(*) 5000 UNITS/ML VIAL (FIVE THOUSAND) SUBCUT SCH ×3 (06:15→22:26)
[2017-01-10] MEDS: Cholecalciferol TAB* 1000 UNITS PO SCH (08:56)
[2017-01-10] MEDS: Atorvastatin* 40 MG TAB PO SCH (08:56)
[2017-01-10] MEDS: Tiotropium CAP.INH* CAP.INH/18 MCG INH SCH (08:56)
[2017-01-10] MEDS: Ascorbic Acid TAB* 500 MG PO SCH (08:56)
[2017-01-10] MEDS: Multivitamins/Minerals TAB PO SCH (08:56)
[2017-01-10] MEDS ORDERED: Spiriva Inhaler DEVICE* 1 EACH DEVICE INH ONE (09:00)
--- NOTE | 2017-01-10 09:18 | PN ---
Subjective Date of Service: 01/10/17 Interval History: Mr. Santoro is a 71 yo male admitted for missed appendicitis and early abscess formation and is being treated non-operatively with antibiotics and bowel rest. He carries a history significant for CAD, COPD, HTN, HLD, CLL, JULIETTE, anxiety, and insomnia. Patient reports feeling well this morning. He reports a "few seconds" of chest discomfort that is no longer present. He denies SOB, diaphoresis, n/v, discomfort to neck, back, or jaw. He reports pain to RLQ but states that "it's better." He is tolerating small amounts of clear liquids. No other acute concerns. Family History: Unchanged from Admission Social History: Unchanged from Admission Past Medical History: Unchanged from Admission Objective Active Medications: Albuterol (Ventolin Hfa Inhaler*) 2 puff INH [id number] AWAKE PRN PRN Reason: DYSPNEA Albuterol (Ventolin Hfa Inhaler*) 2 puff INH Q6HR PRN PRN Reason: SOB/WHEEZING Albuterol/Ipratropium (Duoneb (Albuterol 2.5 Mg/Ipratropium 0.5 Mg)) 1 neb INH [id number] AWAKE PRN PRN Reason: DYSPNEA Ascorbic Acid (Vitamin C Tab*) 500 mg PO DAILY [facility] Last Admin: 01/10/17 08:56 Dose: 500 mg Atorvastatin Calcium (Lipitor*) 40 mg PO DAILY [facility] Last Admin: 01/10/17 08:56 Dose: 40 mg Cholecalciferol (Vitamin D Tab*) 2,000 units PO DAILY [facility] Last Admin: 01/10/17 08:56 Dose: 2,000 units Clonazepam (Klonopin Tab(*)) 0.5 mg PO DAILY PRN PRN Reason: ANXIETY - SEVERE Heparin Sodium (Porcine) (Heparin Vial(*)) 5,000 units SUBCUT Q8HR [facility] Last Admin: 01/10/17 06:15 Dose: 5,000 units Ciprofloxacin/Dextrose (Cipro 400 Mg Ivpremix(*)) 400 mg in 200 mls @ 200 mls/ hr IVPB Q12H [facility] Last Admin: 01/09/17 23:23 Dose: 200 mls/hr Lactated Ringer's (Lactated Ringers 1000 Ml Bag*) 1,000 mls @ 150 mls/hr IV PER RATE [facility] Last Admin: 01/09/17 23:26 Dose: 150 mls/hr Metronidazole/Sodium Chloride (Flagyl 500 Mg Ivpb*) 500 mg in 100 mls @ 100 mls /hr IVPB Q6H [facility] Last Admin: 01/10/17 06:16 Dose: 100 mls/hr Ketorolac Tromethamine (Toradol Inj*) 15 mg IV Q6H PRN PRN Reason: PAIN Stop: 01/10/17 09:14 Mometasone Furoate/Formoterol Fumar (Dulera 200/5 Mdi*) 2 puff INH BID [facility] Last Admin: 01/09/17 21:38 Dose: 2 puff Morphine Sulfate (Morphine Inj (Syringe)*) 4 mg IV Q4H PRN PRN Reason: PAIN Last Admin: 01/08/17 04:07 Dose: 4 mg Multivitamins/Minerals (Theragran/Minerals Tab*) 1 tab PO DAILY [facility] Last Admin: 01/10/17 08:56 Dose: 1 tab Ondansetron HCl (Zofran Inj*) 4 mg IV Q4H PRN PRN Reason: NAUSEA Sodium Chloride (Sodium Chloride 0.65% Nasal [place]*) 2 spray BOTH NARES DAILY PRN PRN Reason: CONGESTION Tiotropium [place] (Spiriva Cap.Inh*) 1 cap INH DAILY [facility] Last Admin: 01/10/17 08:56 Dose: 1 cap Zolpidem Tartrate (Ambien Tab*) 10 mg PO BEDTIME PRN PRN Reason: ANXIETY/INSOMNIA Vital Signs 01/09/17 01/09/17 01/09/17 12:00 15:30 19:08 Temperature 98.3 F 98.1 F 98.2 F Pulse Rate 64 63 63 Respiratory 18 17 16 Rate Blood Pressure 120/63 125/66 115/64 (mmHg) O2 Sat by Pulse 98 97 96 Oximetry 01/09/17 01/09/17 01/10/17 19:13 23:24 04:09 Temperature 97.9 F 98.1 F Pulse Rate 63 58 Respiratory 16 16 16 Rate Blood Pressure 158/88 122/74 (mmHg) O2 Sat by Pulse 96 95 Oximetry 01/10/17 01/10/17 01/10/17 06:34 07:20 08:00 Temperature 98.2 F 97.7 F Pulse Rate 57 58 Respiratory 16 18 18 Rate Blood Pressure 128/74 137/78 (mmHg) O2 Sat by Pulse 96 99 Oximetry Oxygen Devices in Use Now: None Appearance: Pleasant, older male patient, sitting on edge of bed, NAD Eyes: PERRLA Ears/Nose/Mouth/Throat: Mucous Membranes Moist Neck: NL Appearance and Movements; NL JVP Respiratory: Symmetrical Chest Expansion and Respiratory Effort, Clear to Auscultation - prolonged expiratory phase Cardiovascular: NL Sounds; No Murmurs; No JVD, RRR Abdominal: - - BS present, abd soft, tenderness to RLQ Extremities: No Edema Skin: No Rash or Ulcers Neurological: Alert and Oriented x 3 Lines/Tubes/Other Access: Clean, Dry and Intact Peripheral IV Nutrition: Taking PO's - clears Result Diagrams: 01/10/17 04:42 01/10/17 04:42 Additional Lab and Data: Lab Results 01/07/17 01/07/17 01/07/17 Range/Units 21:50 21:50 21:50 WBC 12.3 H (3.5-10.8) 10^3/ul RBC 4.45 (4.0-5.4) 10^6/ul Hgb 13.0 L (14.0-18.0) g/dl Hct 40 L (42-52) % MCV 90 (80-94) fL MCH 29 (27-31) pg MCHC 32 (31-36) g/dl RDW 15 (10.5-15) % Plt Count 150 (150-450) 10^3/ul MPV 9 (7.4-10.4) um3 Neut % (Auto) 77.4 (38-83) % Lymph % (Auto) 13.4 L (25-47) % [place] % (Auto) 6.7 (1-9) % Eos % (Auto) 1.9 (0-6) % Baso % (Auto) 0.6 (0-2) % Absolute Neuts (auto) 9.5 H (1.5-7.7) 10^3/ul Absolute Lymphs (auto) 1.6 (1.0-4.8) 10^3/ul Absolute Monos (auto) 0.8 (0-0.8) 10^3/ul Absolute Eos (auto) 0.2 (0-0.6) 10^3/ul Absolute Basos (auto) 0.1 (0-0.2) 10^3/ul Absolute Nucleated RBC 0.01 10^3/ul Nucleated RBC % 0.1 INR (Anticoag Therapy) 0.99 (0.89-1.11) APTT 30.0 (26.0-36.3) seconds Sodium 138 (133-145) mmol/L Potassium 4.0 (3.5-5.0) mmol/L Chloride 106 (101-111) mmol/L Carbon Dioxide 24 (22-32) mmol/L Anion Gap 8 (2-11) mmol/L BUN 19 (6-24) mg/dL Creatinine 1.01 (0.67-1.17) mg/dL Est GFR ( Amer) 93.9 (>60) Est GFR (Non-Af Amer) 73.0 (>60) BUN/Creatinine Ratio 18.8 (8-20) Glucose 89 (70-100) mg/dL Lactic Acid (0.5-2.0) mmol/L Calcium 8.7 (8.6-10.3) mg/dL Total Bilirubin 0.60 (0.2-1.0) mg/dL AST 17 (13-39) U/L ALT 16 (7-52) U/L Alkaline Phosphatase 88 (34-104) U/L C-Reactive Protein 60.20 H (< 5.00) mg/L Total Protein 6.0 L (6.4-8.9) g/dL Albumin 3.4 (3.2-5.2) g/dL Globulin 2.6 (2-4) g/dL Albumin/Globulin Ratio 1.3 (1-3) Lipase 17 (11.0-82.0) U/L 01/07/17 Range/Units 21:50 WBC (3.5-10.8) 10^3/ul RBC (4.0-5.4) 10^6/ul Hgb (14.0-18.0) g/dl Hct (42-52) % MCV (80-94) fL MCH (27-31) pg MCHC (31-36) g/dl RDW (10.5-15) % Plt Count (150-450) 10^3/ul MPV (7.4-10.4) um3 Neut % (Auto) (38-83) % Lymph % (Auto) (25-47) % [place] % (Auto) (1-9) % Eos % (Auto) (0-6) % Baso % (Auto) (0-2) % Absolute Neuts (auto) (1.5-7.7) 10^3/ul Absolute Lymphs (auto) (1.0-4.8) 10^3/ul Absolute Monos (auto) (0-0.8) 10^3/ul Absolute Eos (auto) (0-0.6) 10^3/ul Absolute Basos (auto) (0-0.2) 10^3/ul Absolute Nucleated RBC 10^3/ul Nucleated RBC % INR (Anticoag Therapy) (0.89-1.11) APTT (26.0-36.3) seconds Sodium (133-145) mmol/L Potassium (3.5-5.0) mmol/L Chloride (101-111) mmol/L Carbon Dioxide (22-32) mmol/L Anion Gap (2-11) mmol/L BUN (6-24) mg/dL Creatinine (0.67-1.17) mg/dL Est GFR ( Amer) (>60) Est GFR (Non-Af Amer) (>60) BUN/Creatinine Ratio (8-20) Glucose (70-100) mg/dL Lactic Acid 0.7 (0.5-2.0) mmol/L Calcium (8.6-10.3) mg/dL Total Bilirubin (0.2-1.0) mg/dL AST (13-39) U/L ALT (7-52) U/L Alkaline Phosphatase (34-104) U/L C-Reactive Protein (< 5.00) mg/L Total Protein (6.4-8.9) g/dL Albumin (3.2-5.2) g/dL Globulin (2-4) g/dL Albumin/Globulin Ratio (1-3) Lipase (11.0-82.0) U/L Assess/Plan/Problems-Billing Assessment: Mr. Santoro is a 71 yo male with a PMH significant for CAD, COPD, HTN, HLD, CLL, JULIETTE, anxiety, and insomnia, who was admitted for missed appendicitis and early abscess formation and is being treated non-operatively with antibiotics and bowel rest. - Patient Problems (1) Appendicitis Code(s): K37 - UNSPECIFIED APPENDICITIS Comment: With early abscess formation - management per surgery Non-operative management at this time Patient is on ciprofloxacin and metronidazole Continue pain management Clear liquid diet (2) Chest pain Code(s): R07.9 - CHEST PAIN, UNSPECIFIED Comment: Transient, does not appear to be cardiac in nature No ischemic changes seen on EKG Will check troponin, given history of CAD and angina (3) COPD (chronic obstructive pulmonary disease) Code(s): J44.9 - CHRONIC OBSTRUCTIVE PULMONARY DISEASE, UNSPECIFIED Comment: No wheezing heard, but patient does have prolonged expiratory phase consistent with COPD Continue prn neublizers, Dulera, and Spiriva (4) HLD (hyperlipidemia) Code(s): E78.5 - HYPERLIPIDEMIA, UNSPECIFIED Comment: Continue statin. LDL 102 Outpatient follow-up with PCP (5) HTN (hypertension) Code(s): I10 - ESSENTIAL (PRIMARY) HYPERTENSION Comment: Mostly normotensive Continue to monitor Does not appear to be on any outpatient medications (6) Anxiety Code(s): F41.9 - ANXIETY DISORDER, UNSPECIFIED Comment: Stable Continue prn clonazepam (7) DVT prophylaxis Code(s): ENP2937 - Comment: SQ heparin Per surgery (8) Full code status Code(s): Z78.9 - OTHER SPECIFIED HEALTH STATUS Status and Disposition: Inpatient admission. Disposition per surgery. Hospitalists will follow along.
--- NOTE | 2017-01-10 09:51 | SURGPN ---
Subjective - Introduction -: Reports doing much better, pain is a lot less. No nausea or vomiting. Tolerating clear liquids, feels hungry. Passing flatus. No fever or chills. - Medications -: Active Medications Generic Name Dose Route Start Last Admin Trade Name Freq PRN Reason Stop Dose Admin Albuterol 2 puff 01/07/17 22:49 Ventolin Hfa Inhaler* INH [id number] AWAKE PRN DYSPNEA Albuterol 2 puff 01/08/17 13:20 Ventolin Hfa Inhaler* INH Q6HR PRN SOB/WHEEZING Albuterol/Ipratropium 1 neb 01/07/17 22:46 Duoneb (Albuterol 2.5 Mg/Ipratropium 0.5 Mg) INH [id number] AWAKE PRN DYSPNEA Ascorbic Acid 500 mg 01/09/17 09:00 01/10/17 08:56 Vitamin C Tab* PO 500 mg DAILY [facility] Administration Atorvastatin Calcium 40 mg 01/09/17 09:00 01/10/17 08:56 Lipitor* PO 40 mg DAILY [facility] Administration Cholecalciferol 2,000 units 01/09/17 09:00 01/10/17 08:56 Vitamin D Tab* PO 2,000 units DAILY [facility] Administration Clonazepam 0.5 mg 01/08/17 13:20 Klonopin Tab(*) PO DAILY PRN ANXIETY - SEVERE Heparin Sodium (Porcine) 5,000 units 01/08/17 14:00 01/10/17 06:15 Heparin Vial(*) SUBCUT 5,000 units Q8HR [facility] Administration Ciprofloxacin/Dextrose 400 mg in 200 mls @ 200 mls/hr 01/07/17 23:30 23:23 Cipro 400 Mg Ivpremix(*) IVPB 200 mls/hr Q12H [facility] Administration Lactated Ringer's 1,000 mls @ 150 mls/hr 01/07/17 23:00 01/10/17 09:34 Lactated Ringers 1000 Ml Bag* IV 150 mls/hr PER RATE [facility] Administration Metronidazole/Sodium Chloride 500 mg in 100 mls @ 100 mls/hr 01/08/17 00:00 01/10/17 06:16 Flagyl 500 Mg Ivpb* IVPB 100 mls/hr Q6H [facility] Administration Mometasone Furoate/Formoterol Fumar 2 puff 01/09/17 21:00 01/09/17 21:38 Dulera 200/5 Mdi* INH 2 puff BID [facility] Administration Morphine Sulfate 4 mg 01/07/17 22:52 01/08/17 04:07 Morphine Inj (Syringe)* IV 4 mg Q4H PRN Administration PAIN Multivitamins/Minerals 1 tab 01/09/17 09:00 01/10/17 08:56 Theragran/Minerals Tab* PO 1 tab DAILY BOBBI Administration Ondansetron HCl 4 mg 01/07/17 22:51 Zofran Inj* IV Q4H PRN NAUSEA Sodium Chloride 2 spray 01/08/17 13:20 Sodium Chloride 0.65% Nasal [place]* BOTH NARES DAILY PRN CONGESTION Tiotropium [place] 1 cap 01/10/17 09:00 01/10/17 08:56 Spiriva Cap.Inh* INH 1 cap DAILY BOBBI Administration Zolpidem Tartrate 10 mg 01/08/17 13:20 Ambien Tab* PO BEDTIME PRN ANXIETY/INSOMNIA Objective - Objective -: Awake and alert, in NAD - Intake and Output -: Intake & Output 01/08/17 01/09/17 01/10/17 01/11/17 06:59 06:59 06:59 06:59 Intake Total 4398 3903 1416 Output Total 1000 Balance 3398 3903 1416 Intake: IV Fluids 3236 2386 1000 LR 2827 1965 1000 abx 409 421 IVPB 537 327 416 abx 537 327 416 Oral 625 1190 Output: Urine 1000 Other: Estimated Void Small # Bowel Movements 0 # Voids 1 3 Surgical Physical Exam - Comments -: VSS, afebrile Lungs CTA bilat. Heart RRR, no murmurs Abdomen soft, less distended. Mild RLQ tenderness, without rebound or guarding. Ext. no edema Labs noted, WBCs normalized at 7,200 Assessment and Plan - Assessment -: A 71 y/o male, with perforated appendicitis, doing well with medical management on IV Abx - Plan Additional Comments: Advance diet to full liquid Ambulate as tolerated Per Dr. Patrick, will obtain a RLQ ultrasound today for further evaluation Spoke with Dr. Ahumada, radiologist, who is aware and will assess for any fluid collections. Possible IR drainage if any abscesses identified Continua IV antibiotics
[2017-01-10] MEDS: Ciprofloxacin 400MG IVPREMIX(* 400 MG/200 ML BAG IVPB SCH ×2 (11:10→23:36)
[2017-01-10] MEDS: Mometasone/Formoter 200/5 MDI INH SCH ×2 (11:14→19:57)
--- NOTE | 2017-01-10 12:01 | RAD ---
Indication: Late clinical presentation of acute appendicitis with early periappendiceal fluid collection on January 07, 2017 CT. Comparison: January 07, 2017 CT. Technique: RIGHT mid to lower quadrant abdominal ultrasound. Report: The appendix is severely dilated measuring up to 2.5 cm in diameter corresponding with the CT finding. Inferior and medial to the appendix a loculated fluid collection is identified measuring up to 2.8 x 4.5 x 1.6 cm most consistent with an abscess collection. The abscess collection is closely approximated by adjacent bowel loops. IMPRESSION: Appendicitis with low volume 2.8 x 4.5 x 1.6 cm periappendiceal abscess grossly unchanged in size with the prior CT.
[2017-01-10] MEDS ORDERED: Omeprazole CAP* 20 MG PO ONE (16:47)
[2017-01-10] MEDS ORDERED: Calcium Carbonate CHEW TAB* 500 MG (TUMS) PO PRN (16:47)
[2017-01-11] MEDS: metroNIDAZOLE IV 500 MG/100ML* 500 MG/100 ML BAG IVPB SCH ×3 (00:45→11:58)
[2017-01-11 05:12] LABS: Hematocrit 38 % (42-52); Hemoglobin 12.4 g/dl (14.0-18.0); Mean Corpuscular HGB Conc 33 g/dl (31-36); Mean Corpuscular Hemoglobin 30 pg (27-31); Mean Corpuscular Volume 89 fL (80-94); Mean Platelet Volume 9 um3 (7.4-10.4); Red Cell Distribution Width 15 % (10.5-15); White Blood Count 6.7 10^3/ul (3.5-10.8)
[2017-01-11] MEDS: Heparin VIAL(*) 5000 UNITS/ML VIAL (FIVE THOUSAND) SUBCUT SCH (05:36)
[2017-01-11] MEDS ORDERED: Omeprazole CAP* 20 MG PO SCH (06:00)
[2017-01-11] MEDS: Tiotropium CAP.INH* CAP.INH/18 MCG INH SCH (08:55)
[2017-01-11] MEDS: Mometasone/Formoter 200/5 MDI INH SCH (08:55)
[2017-01-11] MEDS: Cholecalciferol TAB* 1000 UNITS PO SCH (09:20)
[2017-01-11] MEDS: Multivitamins/Minerals TAB PO SCH (09:20)
[2017-01-11] MEDS: Ascorbic Acid TAB* 500 MG PO SCH (09:21)
[2017-01-11] MEDS: Atorvastatin* 40 MG TAB PO SCH (09:21)
--- NOTE | 2017-01-11 09:33 | PN ---
Progress Note - Progress Note SOAP: Subjective: Pt reports feeling well, in no pain. Only has tenderness with deep palpation of the RLQ, such as during yesterday's abdominal sonogram. He is ambulating without any pain or difficulty and toileting normally. His diet was advanced to full liquids yesterday and he has tolerated this well. He denies fever, chills, or diaphoresis. Denies any chest pain or difficulty breathing. Labs reviewed, WBC within normal limits (6.7) Objective: Pt is sitting up comfortably in a bedside chair. He appears in no acute distress. Vital signs reviewed and stable. S1 and S2 auscultated, no murmurs, rubs or gallops appreciated. Cap refill <2 seconds. No peripheral edema Symmetric expansion of the chest wall, normal breathing effort, lungs clear to auscultation without murmurs, rubs or gallops. Abdomen rotund, but soft and non-distended. Bowel sounds normoactive. No tenderness to soft palpation, mild tenderness to deep palpation of the RLQ. No rebound tenderness, no guarding. No palpable masses of hepatosplenomegally. Assessment & Plan: 71 y/o male with a hx of CAD, COPD and CCL, who presented with perforated appendicitis and pariappendecial fluid collection, on day of admission #3, being managed with IV antibiotics. Pt has marked clinical improvement with resolution of pain, fever and normalization of WBC count. An ultrasound performed yesterday shows pariappendecial fluid, but drainage would not be appropriate or possibly even feasible at this time, after discussion with Dr. Patrick. The patient will be switched to an oral antibiotic regimen of his current antibiotics, to continue for a total of 2 weeks. Plan for discharge later today. Continue all home medications. Follow up with the surgical office next Monday, an appointment will be made for him. Will arrange a CT scan after termination of his antibiotic, to reassess inflammation resolution and fluid collection. Patient instructed to contact the office with worsening of pain or constitutional symptoms. Russ Borrero - MS3 [facility]
[2017-01-11] MEDS: Ciprofloxacin 400MG IVPREMIX(* 400 MG/200 ML BAG IVPB SCH (11:58)
[2017-01-11 11:59] VITALS: BP 122/67
--- NOTE | 2017-01-11 12:59 | DS ---
DISCHARGE SUMMARY: DATE OF ADMISSION: 01/08/17 DATE OF DISCHARGE: 01/11/17 ATTENDING SURGEON: Landry Patrick MD (DICTATED BY IBAN POOL) HOSPITAL COURSE: Please refer to admission history and physical for admission details. Briefly, the patient was admitted with a 6-day course of abdominal pain which by CT was consistent with a missed appendicitis with an area of loculated fluid collection. It was elected to treat him with antibiotics and forego operative intervention. He was treated with IV Cipro and Flagyl with improvement in both pain and normalization of his leukocytosis. He was seen in consult by the hospitalist for management of his cardiopulmonary disease. He has continued to improve to the point where on the morning of discharge, he is not requiring any pain medication. His temperature is 97.8, blood pressure 137/ 79, pulse 60, respirations 18, room air saturation 99%. He appears well and in no acute distress. PHYSICAL EXAMINATION: Exam (by medical student, Russ Borrero) reveals heart with regular rate and rhythm. Lungs clear to auscultation. Abdomen: Soft, nontender with the exception of some very mild tenderness to deep palpation in the right lower quadrant. Bowel sounds are normal and active. There is no rebound, guarding, and no palpable masses. Ultrasound of the right lower quadrant had been performed on 01/10/17, followup showing a dilated appendix measuring up to 2.5 cm in diameter as well as an associated loculated fluid collection measuring 2.8 x 4.5 x 1.6 cm, similar to that seen by CT. DISCHARGE MEDICATIONS: Will include all of his usual home medications (see reconciliation form ); in addition, Cipro 500 b.i.d. x11 days and Flagyl 500 mg t.i.d. x11 days. IMPRESSION: Missed appendicitis, improving. PLAN: Discharge home today on oral antibiotics to complete a total of 14-day course of Cipro and Flagyl. He has a followup appointment with Dr. Patrick on 01/16/17. Plan will also be for followup ultrasound on 01/23/17 at the completion of antibiotics. There will be consideration and discussion for possible interval appendectomy. BIAN POOL CC: Irving Newell MD; [facility]* [id number]/CPS #: [id number] MTDD
== END 2017-01-11 12:15 | disposition home or self-care (01) | DRG 372 ==
LOC: ED 20:49 → SSU 22:42 → OBSVTOIN 01-08 09:00
PROVIDERS: ADMIT Surgery; ATTEND Surgery
DX: K35.3 Acute appendicitis with localized peritonitis (principal); C91.10 Chronic lymphocytic leukemia of B-cell type not having achieved remission; I11.9 Hypertensive heart disease without heart failure; J44.9 Chronic obstructive pulmonary disease, unspecified; E78.5 Hyperlipidemia, unspecified; F41.9 Anxiety disorder, unspecified; G47.00 Insomnia, unspecified; I25.119 Atherosclerotic heart disease of native coronary artery with unspecified angina pectoris; E66.9 Obesity, unspecified; G47.33 Obstructive sleep apnea (adult) (pediatric); M48.00 Spinal stenosis, site unspecified; M19.90 Unspecified osteoarthritis, unspecified site; N40.0 Benign prostatic hyperplasia without lower urinary tract symptoms; F10.21 Alcohol dependence, in remission; Z79.82 Long term (current) use of aspirin; Z79.899 Other long term (current) drug therapy; Z88.8 Allergy status to other drugs, medicaments and biological substances; Z91.041 Radiographic dye allergy status; Z88.0 Allergy status to penicillin; Z91.013 Allergy to seafood; Z87.891 Personal history of nicotine dependence; Z68.35 Body mass index [BMI] 35.0-35.9, adult
CPT/HCPCS: 36415; 71010; 74176; 76705; 80048; 80053; 80061; 81003; 83605; 83690; 84484; 85025; 85610; 85730; 86140; 93005; 94640; 94760; 94762; A9270-GY; J0744; J1644; J2270

== ENCOUNTER 2017-02-25 16:59 | Emergency (ER) | payer MEDICARE ==
[2017-02-25 17:07] VITALS: BP 133/76
--- NOTE | 2017-02-25 17:44 | UC ---
Respiratory Complaint HPI - HPI Summary HPI Summary: c/o intermittent fevers for 4 weeks-between 99-102----cough, 4 weeks ago he was hospitalized and treated with IV then PO antibiotics for appendicitis no nausea , vomiting or diarrhea, no ears, nose or throat pain - History of Current Complaint Chief Complaint: UCRespiratory Stated Complaint: COUGH,FEVER Time Seen by Provider: 02/25/17 17:19 Hx Obtained From: Patient Onset/Duration: Gradual Onset, Lasting Weeks - 4, Still Present Timing: Constant Severity Initially: Moderate Severity Currently: Moderate Pain Intensity: 5 Pain Scale Used: 0-10 Numeric Character: Cough: Productive Aggravating Factors: Nothing Alleviating Factors: Nothing Associated Signs And Symptoms: Positive: Fever, Pleuritic Chest Pain - Allergies/Home Medications Allergies/Adverse Reactions: Allergies Allergy/AdvReac Type Severity Reaction Status Date / Time Allopurinol Allergy Rash Verified 01/07/17 21:15 Penicillins Allergy Rash Verified 01/07/17 21:15 Shellfish Allergy Allergy Hives/Diff. Verified 01/07/17 21:15 Breathing/I tching contrast dye Allergy Hives/Diff. Uncoded 01/07/17 21:15 Breathing/I tching Home Medications: Home Medications Bupropion XL* [Wellbutrin XL *] 150 mg PO DAILY 02/25/17 [History Confirmed ] PMH/Surg Hx/FS Hx/Imm Hx Previously Healthy: No Endocrine History: Dyslipidemia Respiratory History: COPD - Surgical History Surgical History: Yes Surgery Procedure, Year, and Place: broken leg 83 - Family History Known Family History: Positive: Cardiac Disease, Diabetes, Other - CVA - Social History Occupation: Retired Lives: With Family Alcohol Use: None Substance Use Type: None Smoking Status (MU): Former Smoker Type: Cigarettes Amount Used/How Often: 2 ppd Length of Time of Smoking/Using Tobacco: 25 years Have You Smoked in the Last Year: No When Did the Patient Quit Smoking/Using Tobacco: 1999 - Immunization History Most Recent Influenza Vaccination: Fall 2015 Most Recent Tetanus Shot: current Most Recent Pneumonia Vaccination: 2013 Review of Systems Constitutional: Fever, Chills Skin: Negative Eyes: Negative ENT: Negative Respiratory: Cough Cardiovascular: Negative Gastrointestinal: Negative Genitourinary: Negative Motor: Negative Neurovascular: Negative Musculoskeletal: Negative Neurological: Negative Psychological: Negative All Other Systems Reviewed And Are Negative: Yes Physical Exam Triage Information Reviewed: Yes Appearance: Well-Appearing, No Pain Distress, Well-Nourished Vital Signs: Initial Vital Signs Temp 99.8 F 02/25/17 17:03 Pulse 83 02/25/17 17:03 Resp 18 02/25/17 17:03 BP 133/76 02/25/17 17:03 Pulse Ox 94 02/25/17 17:03 Vital Signs Reviewed: Yes Eye Exam: Normal Eyes: Positive: Conjunctiva Clear ENT Exam: Normal ENT: Positive: Normal ENT inspection, Hearing grossly normal, TMs normal. Negative: Nasal congestion, Nasal drainage, Tonsillar swelling, Tonsillar exudate, Trismus, Muffled/hoarse voice Dental Exam: Normal Neck exam: Normal Neck: Positive: Supple, Nontender, Enlarged Nodes @ Respiratory Exam: Normal Respiratory: Positive: Chest non-tender, Lungs clear, Normal breath sounds, Wheezing Cardiovascular Exam: Normal Cardiovascular: Positive: RRR, No Murmur, Pulses Normal, Brisk Capillary Refill Abdominal Exam: Normal Abdomen Description: Positive: Nontender, No Organomegaly, Soft Bowel Sounds: Positive: Present Musculoskeletal Exam: Normal Musculoskeletal: Positive: Strength Intact, ROM Intact, No Edema Neurological Exam: Normal Neurological: Positive: Alert, Muscle Tone Normal Psychological Exam: Normal Psychological: Positive: Normal Response To Family Skin Exam: Normal UC Diagnostic Evaluation - Laboratory O2 Sat by Pulse Oximetry: 94 - Radiology Xray Interpretation: No Acute Changes Radiology Interpretation Completed By: Radiologist Respiratory Course/Dx - Course Course Of Treatment: albuterol with aerochamber, prednisone, follow with pulmonology - Differential Dx/Diagnosis Differential Diagnosis/HQI/PQRI: Bronchitis, CHF, Exacerbation Of COPD, Influenza, Laryngitis Provider Diagnoses: Acute exacerbation of Copd Discharge - Discharge Plan Condition: Stable Disposition: HOME Prescriptions: Albuterol/Ipratropium RESP(NF) [Combivent Respimat(NF)] 1 aer IN QID #1 aer predniSONE TAB* [Deltasone TAB*] 10 mg PO DAILY #20 tab Patient Education Materials: Fever in Adults (ED), COPD (Chronic Obstructive Pulmonary Disease) (ED), How to Use a Metered-Dose Inhaler and a Spacer (ED) Referrals: Jocelin Flores MD [Medical Doctor] - 3 Days Irving Newell MD [Primary Care Provider] - (this week as planned) Tanner Samuel MD [Medical Doctor] - (this week as planned)
--- NOTE | 2017-02-25 17:47 | RAD ---
INDICATION: Cough and fever COMPARISON: Similar chest x-ray dated January 07, 2017 TECHNIQUE: PA and lateral views of the chest were obtained. FINDINGS: The heart and mediastinum are normal in size and contour. The lungs are grossly clear. There is no evidence of large pleural effusion. Multilevel degenerative changes of the thoracic spine include loss of intervertebral disc height and mild marginal osteophyte formation. There is no radiographic evidence of free air beneath the diaphragm IMPRESSION: No radiographic evidence of acute cardiopulmonary disease.
[2017-02-25] MEDS ORDERED: Albuterol/Ipratropium NEB.SOL* Albuterol 2.5 MG/Ipratropium 0.5 MG 3 ML INH ONE (17:53)
[2017-02-25] MEDS ORDERED: Albuterol HFA INHALER* 8 gm MDI INH ONE (19:04)
[2017-02-25] MEDS ORDERED: predniSONE TAB* 20 MG PO ONE (19:05)
== END 2017-02-25 19:35 | disposition home or self-care (01) ==
LOC: UCEAST 16:59
DX: J44.1 Chronic obstructive pulmonary disease with (acute) exacerbation (principal); E78.5 Hyperlipidemia, unspecified; Z91.041 Radiographic dye allergy status; Z88.0 Allergy status to penicillin; Z91.013 Allergy to seafood; Z87.891 Personal history of nicotine dependence
CPT/HCPCS: 71020; 81003; 99213; A9270-GY; G0463; J7512

== ENCOUNTER 2017-06-07 13:59 | Emergency (ER) | payer BC, MEDICARE, OTHER ==
[2017-06-07 14:11] VITALS: BP 129/70
--- NOTE | 2017-06-07 14:29 | UC ---
HPI Febrile Illness - HPI Summary HPI Summary: 71 YEAR OLD MALE PRESENTS WITH COMPLAINS OF FEVER AND RASH AFTER COMING OUT OF THE BRAY. - History of Current Complaint Chief Complaint: UCGeneralIllness Time Seen by Provider: 06/07/17 14:29 Hx Obtained From: Patient Onset/Duration: Started Days Ago Timing: Constant Initial Severity: Moderate Current Severity: Moderate - Additional Pertinent History Primary Care Physician: KATHRINE - Allergy/Home Medications Allergies/Adverse Reactions: Allergies Allergy/AdvReac Type Severity Reaction Status Date / Time Allopurinol Allergy Rash Verified 06/07/17 14:11 Penicillins Allergy Rash Verified 06/07/17 14:11 Shellfish Allergy Allergy Hives/Diff. Verified 06/07/17 14:11 Breathing/I tching contrast dye Allergy Hives/Diff. Uncoded 01/07/17 21:15 Breathing/I tching PMH/Surg Hx/FS Hx/Imm Hx Previously Healthy: Yes - Surgical History Surgical History: Yes Surgery Procedure, Year, and Place: broken - Family History Known Family History: Positive: Cardiac Disease, Diabetes, Other - CVA - Social History Alcohol Use: None Substance Use Type: None Smoking Status (MU): Former Smoker Type: Cigarettes Amount Used/How Often: 2 ppd Length of Time of Smoking/Using Tobacco: 25 years Have You Smoked in the Last Year: No When Did the Patient Quit Smoking/Using Tobacco: 1999 - Immunization History Most Recent Influenza Vaccination: Fall 2015 Most Recent Tetanus Shot: current Most Recent Pneumonia Vaccination: 2012 Review of Systems Constitutional: Fever Skin: Rash Eyes: Negative ENT: Negative Respiratory: Negative Cardiovascular: Negative Gastrointestinal: Negative Genitourinary: Negative Motor: Negative Neurovascular: Negative Musculoskeletal: Negative Neurological: Negative Psychological: Negative All Other Systems Reviewed And Are Negative: Yes Physical Exam Triage Information Reviewed: Yes Vital Signs: Initial Vital Signs Temp 38.2 C 06/07/17 14:04 Pulse 72 06/07/17 14:04 Resp 16 06/07/17 14:04 BP 129/70 06/07/17 14:04 Pulse Ox 99 06/07/17 14:04 Vital Signs Reviewed: Yes Eye Exam: Normal ENT Exam: Normal Dental Exam: Normal Neck exam: Normal Neck: Positive: 1 Respiratory Exam: Normal Cardiovascular Exam: Normal Abdominal Exam: Normal Musculoskeletal Exam: Normal Neurological Exam: Normal Psychological Exam: Normal Skin: Positive: rashes - LEFT ELBOW Course/Dx - Diagnoses Clinic Provider Diagnoses: RASH. FEVER Discharge - Discharge Plan Condition: Stable Disposition: HOME Patient Education Materials: Lyme Disease (ED), Tick Bite (ED), Fever in Adults (ED) Referrals: Irving Newell MD [Primary Care Provider] -
[2017-06-07] MEDS ORDERED: DOXYcycline CAP(*) 100 MG PO ONE (14:33)
[2017-06-07 18:47] LABS: Hematocrit 41 % (42-52); Hemoglobin 13.8 g/dl (14.0-18.0); Mean Corpuscular HGB Conc 33 g/dl (31-36); Mean Corpuscular Hemoglobin 31 pg (27-31); Mean Corpuscular Volume 92 fL (80-94); Mean Platelet Volume 9 um3 (7.4-10.4); Red Blood Count 4.47 10^6/ul (4.0-5.4); Red Cell Distribution Width 16 % (10.5-15); White Blood Count 11.8 10^3/ul (3.5-10.8)
[2017-06-07 19:09] LABS: BUN/Creatinine Ratio 19.5 (8-20); Calcium 8.8 mg/dL (8.6-10.3); EGFR African American 74.8 (>60); EGFR Non-African American 58.2 (>60); Globulin 1.5 g/dL (2-4); Potassium 4.5 mmol/L (3.5-5.0); Total Bilirubin 1.2 mg/dL (0.2-1.0); Total Protein 5.5 g/dL (6.4-8.9)
--- NOTE | 2017-06-08 10:57 | UC ---
Progress - Progress Note Progress Note: Please notify patient of CBC results slightly elevated WBC low platelets needs to call his primary and set up an appt for recheck
== END 2017-06-07 15:20 | disposition home or self-care (01) ==
LOC: UCEAST 13:59
DX: R50.9 Fever, unspecified (principal); R21 Rash and other nonspecific skin eruption; Z88.0 Allergy status to penicillin; Z87.891 Personal history of nicotine dependence
CPT/HCPCS: 36415; 80053; 85025; 86618; 87502; 87651; 99212; A9270-GY; G0463

== ENCOUNTER 2017-10-16 11:35 | Day surgery (SDC) | payer MEDICARE, OTHER ==
[~2017-10-16 11:35] MED LIST: Acetaminophen TAB* 325 MG PO PRN; Buffered Lidocaine 0.9% SYRIN* 5 ML/SYR SYRINGE INTRADERM ONE
[2017-10-16] MEDS ORDERED: Atenolol TAB* 25 MG ONE (12:42)
[2017-10-16] MEDS ORDERED: Atenolol TAB* 25 MG PO ONE (12:42)
[2017-10-16] MEDS ORDERED: Midazolam* 1 MG/ML 2 ML VIAL (2 MG) ONE (13:03)
[2017-10-16 14:14] VITALS: BP 114/74
[2017-10-17] MEDS ORDERED: Neomycin/Polymy/Dex OPHTH.OIN* 3.5 GM ONE (07:30)
[2017-10-17] MEDS ORDERED: Tropicamide 1% OPTH.SOL* BTL ONE (07:30)
[2017-10-17] MEDS ORDERED: Tetracaine 0.5% OPTH.SOL 4 ML* 1 DROP BTL ONE (07:30)
[2017-10-17] MEDS ORDERED: Povidone Iodine 5% OPTH* 30 ML BTL ONE (07:30)
[2017-10-17] MEDS ORDERED: Ketorolac 0.5% OPHTH (NF) 0.5 % 5 ML BTL ONE (07:30)
[2017-10-17] MEDS ORDERED: Cyclopentolate 1% OPTH.SOL* 2 ML BTL ONE (07:30)
[2017-10-17] MEDS ORDERED: Phenylephrine 2.5% OPTH.SOL* 2 ML BTL ONE (07:30)
[2017-10-17] MEDS ORDERED: Lidocaine 1% MPF* 2 ML VIAL ONE (07:30)
[2017-10-17] MEDS ORDERED: acetaZOLAMIDE TAB* 250 MG ONE (07:30)
--- NOTE | 2017-10-17 11:50 | OP ---
DATE OF OPERATION: 10/16/17 - [facility] DATE OF : 47 SURGEON: Primitivo Vargas MD ANESTHESIA: Monitored anesthesia care. PRE-OP DIAGNOSIS: Cataract, right eye. POST-OP DIAGNOSIS: Cataract, right eye. OPERATIVE PROCEDURE: Extracapsular cataract extraction of the right eye with intraocular lens implant. IMPLANTS: SN60WF 20.0 diopter lens to the right eye. COMPLICATIONS: None. DESCRIPTION OF PROCEDURE: The patient was given phenylephrine 2.5% and cyclopentolate 1% eye drops to the operative eye in the preoperative area. The patient was brought to the operating room where a time-out was taken to identify the correct patient, site, and side of surgery. The patient's right eye was prepped and draped in the usual sterile fashion with 5% Betadine. A second time- out was taken to verify the correct patient, site, and side of surgery, and correct lens selection. A lid speculum was placed to the right eye. A 1-mm paracentesis blade was used to make a clear corneal incision in the superotemporal position. Preservative free 1% lidocaine was injected into the anterior chamber. DisCoVisc was then injected into the anterior chamber. A 2.75 mm keratome blade was used to make a triplanar incision at the inferotemporal position. A cystotome initiated a capsulorrhexis, which was completed with Utrata forceps in a continuous and curvilinear manner. Hydrodissection of the lens was performed with BSS on a cannula. The lens could be spun in a capsular bag. The phacoemulsification handpiece was used with a divide and conquer technique to remove to nucleus in its entirety with an 11.42 CDE. The I/A handpiece then removed the residual cortical lens material. DisCoVisc was injected to inflate the capsular bag. The planned SN60WF 20.0 diopter lens was injected into the capsular bag. The residual DisCoVisc was removed from the eye with a I/A handpiece. The corneal incisions were hydrated and no leaks occurred at physiologic pressure around 20 mmHg per palpation. The lid speculum was removed and drapes removed. Maxitrol ointment was placed to the surface of the operative eye. An adhesive patch and shield was then placed on the operative eye. The patient was taken to the postoperative area in stable condition. [id number]/CPS #: [id number] MTDD
== END 2017-10-16 14:21 | disposition home or self-care (01) ==
LOC: OREAST 11:35
PROVIDERS: ATTEND Student in an Organized Health Care Education/Training Program
PROC: 08RJ3JZ Replacement of Right Lens with Synthetic Substitute, Percutaneous Approach (ICD-10-PCS; principal; 2017-10-16 13:00)
DX: H25.811 Combined forms of age-related cataract, right eye (principal); H25.12 Age-related nuclear cataract, left eye; N40.0 Benign prostatic hyperplasia without lower urinary tract symptoms; I77.810 Thoracic aortic ectasia; C91.11 Chronic lymphocytic leukemia of B-cell type in remission; E78.5 Hyperlipidemia, unspecified; I10 Essential (primary) hypertension; J44.9 Chronic obstructive pulmonary disease, unspecified; Z87.891 Personal history of nicotine dependence
CPT/HCPCS: A9270-GY; J2250

== ENCOUNTER 2017-10-23 11:23 | Day surgery (SDC) | payer MEDICARE, OTHER ==
[~2017-10-23 11:23] MED LIST changes: +Cyclopentolate 1% OPTH.SOL* 2 ML BTL ONE; +Ketorolac 0.5% OPHTH (NF) 0.5 % 5 ML BTL ONE; +Lidocaine 1% MPF* 2 ML VIAL ONE; +Neomycin/Polymy/Dex OPHTH.OIN* 3.5 GM ONE; +Phenylephrine 2.5% OPTH.SOL* 2 ML BTL ONE; +Povidone Iodine 5% OPTH* 30 ML BTL ONE; +Tetracaine 0.5% OPTH.SOL 4 ML* 1 DROP BTL ONE; +Tropicamide 1% OPTH.SOL* BTL ONE; +acetaZOLAMIDE TAB* 250 MG ONE
[2017-10-23] MEDS ORDERED: Artificial Tear OPHTH.OINT* 3.5 GM ONE (13:33)
[2017-10-23] MEDS ORDERED: Midazolam* 1 MG/ML 2 ML VIAL (2 MG) ONE ×2 (13:44→13:55)
[2017-10-23 14:43] VITALS: BP 119/69
--- NOTE | 2017-10-24 12:19 | OP ---
DATE OF OPERATION: 10/23/17 - [facility] DATE OF : 47 SURGEON: Primitivo Vargas MD ANESTHESIA: Monitored anesthesia care. PRE-OP DIAGNOSIS: Cataract, left eye. POST-OP DIAGNOSIS: Cataract, left eye. OPERATIVE PROCEDURE: Extracapsular cataract extraction of the left eye with intraocular lens implant. IMPLANTS: SN60WF 20.5 diopter lens to the left eye. COMPLICATIONS: None. DESCRIPTION OF PROCEDURE: The patient was given phenylephrine 2.5% with cyclopentolate 1% eye drops to the operative eye in the preoperative area. The patient was brought to the operating room where a time-out was taken to identify the correct patient, site and side of surgery. The patient's left eye was prepped and draped in the usual sterile fashion with 5% Betadine. A second time-out was taken to verify the correct patient, site and side of surgery, and correct lens selection. A lid speculum was placed to the left eye. A 1-mm paracentesis blade was used to make a clear corneal incision in the inferotemporal position. Preservative-free 1% lidocaine was injected into the anterior chamber. DisCoVisc was then injected into the anterior chamber. A 2.75 mm keratome blade was used to make a triplanar incision at the superotemporal position. A cystotome initiated a capsulorrhexis, which was completed with Utrata forceps in a continuous and curvilinear manner. Hydrodissection of the lens was performed with BSS on a cannula. The lens could be spun in the capsular bag. The phacoemulsification handpiece was used with a [id number]-[id number] technique to remove the nucleus in its entirety with 13.1 CDE. The I/A handpiece then removed the residual cortical lens material. DisCoVisc was injected to inflate the capsular bag. The planned SN60WF 20.5 diopter lens was injected in the capsular bag. The residual DisCoVisc was removed from the eye with the I/A handpiece. The corneal incisions were hydrated and no leaks occurred at physiologic pressure around 20 mmHg per palpation. The lid speculum was removed and drapes removed. Artificial Tear ointment was placed on the surface of the operative eye. The patient was taken to the postoperative area in stable condition. [id number]/[facility] #: [id number] [facility]
== END 2017-10-23 14:39 | disposition home or self-care (01) ==
LOC: OREAST 11:23
PROVIDERS: ATTEND Student in an Organized Health Care Education/Training Program
DX: H25.12 Age-related nuclear cataract, left eye (principal); C91.11 Chronic lymphocytic leukemia of B-cell type in remission; I10 Essential (primary) hypertension; Z87.891 Personal history of nicotine dependence; J44.9 Chronic obstructive pulmonary disease, unspecified; N40.0 Benign prostatic hyperplasia without lower urinary tract symptoms; E78.4 Other hyperlipidemia; I77.810 Thoracic aortic ectasia; I25.118 Atherosclerotic heart disease of native coronary artery with other forms of angina pectoris
CPT/HCPCS: A9270-GY; J2250; V2632

== ENCOUNTER 2017-11-14 13:00 | Emergency (ER) | payer MEDICARE ==
[2017-11-14 13:13] VITALS: BP 156/93
--- NOTE | 2017-11-14 13:22 | UC ---
Elbow Pain - HPI Summary HPI Summary: Pt presents with right elbow redness, swelling, and pain for the last week. He tells me that he just returned from [place], while he was there he thinks he was bitten by a spider or insect on his right elbow. Since that time has been red and itchy, but recently started to spread and become swollen and painful. He has not taken anything for his discomfort. Denies fever, chills, decreased ROM, or drainage. - History of Current Complaint Chief Complaint: UCSkin Stated Complaint: RED SWOLLEN ELBOW Hx Obtained From: Patient Severity Initially: Moderate Severity Currently: Moderate Pain Intensity: 4 Pain Scale Used: 0-10 Numeric Character: Aching, Stiffness Alleviating Factor(s): Rest - Allergies/Home Medications Allergies/Adverse Reactions: Allergies Allergy/AdvReac Type Severity Reaction Status Date / Time allopurinol Allergy Rash Verified 11/14/17 13:14 Penicillins Allergy Rash Verified 11/14/17 13:14 shellfish derived Allergy Hives/Diff. Verified 11/14/17 13:14 Breathing/I tching contrast dye Allergy Severe Hives/Diff. Uncoded 10/23/17 12:33 Breathing/I tching Home Medications: Home Medications Ascorbic Acid TAB* [Vitamin C TAB*] 500 mg PO DAILY 11/14/17 [History Confirmed 11/14/17] Ubidecarenone [Coq10] 100 mg PO 11/14/17 [History] PMH/Surg Hx/FS Hx/Imm Hx Endocrine History: Dyslipidemia Cardiovascular History: Hypertension Respiratory History: COPD - Surgical History Surgical History: Yes Surgery Procedure, Year, and Place: broken leg . left wrist carpal tunnel release 2002 - Family History Known Family History: Positive: Cardiac Disease, Diabetes, Other - CVA - Social History Occupation: Retired Lives: With Family Alcohol Use: None Substance Use Type: None Smoking Status (MU): Former Smoker Type: Cigarettes Amount Used/How Often: 2 ppd, smoked for 25 years Length of Time of Smoking/Using Tobacco: 25 years Have You Smoked in the Last Year: No When Did the Patient Quit Smoking/Using Tobacco: 1999 - Immunization History Most Recent Influenza Vaccination: Fall 2015 Most Recent Tetanus Shot: unknown Most Recent Pneumonia Vaccination: 2012 Review of Systems Constitutional: Negative Skin: Other - Redness and swelling right elbow Respiratory: Negative Cardiovascular: Negative Neurovascular: Negative Musculoskeletal: Other: - Right elbow pain Neurological: Negative Psychological: Negative All Other Systems Reviewed And Are Negative: Yes Physical Exam Triage Information Reviewed: Yes Appearance: Well-Appearing, No Pain Distress, Well-Nourished Vital Signs: Initial Vital Signs Temp 98.3 F 11/14/17 13:07 Pulse 67 11/14/17 13:07 Resp 16 11/14/17 13:07 BP 156/93 11/14/17 13:07 Pulse Ox 96 11/14/17 13:07 Vital Signs Reviewed: Yes Neck: Positive: Supple, Nontender, No Lymphadenopathy Respiratory: Positive: Lungs clear, Normal breath sounds, No respiratory distress Cardiovascular: Positive: RRR, No Murmur, Pulses Normal Musculoskeletal: Positive: Strength Intact - Right elbow, ROM Intact - Right elbow Neurological: Positive: Alert Psychological: Positive: Age Appropriate Behavior Skin: Positive: Other - 1.0cm scab on right elbow. Surround this elbow there is moderate edema and erythema extending to the proximal 1/3 of the right forearm. Elbow Pain Course/Dx - Course Course Of Treatment: Right elbow cellulitis vs bursitis. I will treat him with oral antibiotics, but have him follow up with orthopedics on the chance the infection has spread to the bursae and he needs further therapy. - Differential Dx/Diagnosis Provider Diagnoses: Right elbow cellulitis Discharge - Discharge Plan Condition: Stable Disposition: HOME Prescriptions: Clindamycin HCl 300 mg PO TID #30 capsule Patient Education Materials: Cellulitis (DC), Elbow Bursitis (ED) Referrals: Asif Glover MD [Primary Care Provider] - Peewee Hull MD [Medical Doctor] - As Soon As Possible Additional Instructions: If you develop a fever, shortness of breath, chest pain, new or worsening symptoms - please call your PCP or go to the ED. Your blood pressure was high at todays visit. Please see your primary provider within 4 weeks for recheck and re-evaluation. 1) Please apply ice to your elbow throughout the day 2) If your redness, swelling, or pain get worse - despite taking the antibiotic , please go to the ER 3) Please call Orthopedics at the number below to schedule a follow up appointment this week
== END 2017-11-14 13:37 | disposition home or self-care (01) ==
LOC: UCEAST 13:00
DX: L03.113 Cellulitis of right upper limb (principal); E78.5 Hyperlipidemia, unspecified; I10 Essential (primary) hypertension; J44.9 Chronic obstructive pulmonary disease, unspecified; Z88.0 Allergy status to penicillin; Z91.041 Radiographic dye allergy status; Z87.891 Personal history of nicotine dependence
CPT/HCPCS: 99212; G0463

== ENCOUNTER 2019-07-24 19:24 | Emergency (ER) | payer BC ==
--- OUTSIDE RECORDS SUMMARY | 2019-07-24 19:40 | XMS REPORT | Continuity of Care Document ---
:1945 External Reference #:[id number] Author Name Acosta Shah Address [address] [place] [address] Care Team Providers Name Role Phone Malka Staton - Telesales Manager Care Team Information Dough Puncher Steff ENT - Otolaryngology Care Team Information Dough Puncher [phone] Landry Patrick MD - Surgery Care Team Information Dough Puncher [phone] Josue Love MD - Dermatology Care Team Information Dough Puncher [phone] Problems Active Problems Provider Date Benign essential hypertension Irving Newell M.D. Onset: 12/27/2007 Obstructive sleep apnea syndrome Irving Newell M.D. Onset: 12/27/2007 Hyperlipidemia Irving Newell M.D. Onset: 12/27/2007 Benign prostatic hypertrophy without outflow Irving Newell M.D. Onset: obstruction Chronic lymphoid leukemia in remission Irving Newell M.D. Onset: 2012 Malignant melanoma of skin of upper limb Irving Newell M.D. Onset: 2014 Cataract Irving Newell M.D. Onset: 10/10/2017 Aortic root dilatation Irving Newell M.D. Onset: 10/10/2017 Liver function tests abnormal Irving Newell M.D. Onset: 04/12/2018 Social History Type Date Description Comments Sex Unknown Tobacco Use Start: Unknown End: Former Cigarette Smoker 1 Unknown Pack Daily ETOH Use Has consumed alcohol in still going to on the past regular basis Tobacco Use Start: Unknown End: Patient is a former smoker quit 1999 Unknown Smoking Status Reviewed: 06/17/19 Patient is a former smoker quit 1999 Allergies, Adverse Reactions, Alerts Active Allergies Reaction Severity Comments Date Allopurinol 10/28/2003 Penicillin Rash 05/06/2004 Keflex Rash 05/06/2004 Lisinopril,Prinivil cough 02/01/2007 IV Contrast Anaphlaxis 12/05/2007 Fludarabine 11/02/2010 Medications Active Medications SIG Qnty Indications Ordering Date Provider Azithromycin 2 po qd for 3 10tabs Bren 05/28/2019 250mg days, then 1 po [place], Afnp-C Tablets qd for 4 days Bupropion Take 1 Tablet 90Tablet Irving F. 03/31/2019 Hydrochloride ER (XL) By Mouth Every Gumaro Newell Day 150mg Tablets ER 24HR Bupropion HCL ER (XL) 1 by mouth 30tabs Irving F. 04/12/2018 every day Gumaro Newell 150mg Tablets ER 24HR Atenolol 1 by mouth 90tabs Irving F. 10/10/2017 25mg Tablets every day Gumaro Newell Nitrostat 1 sl as needed, 25tabs Irving F. 05/30/2016 0.4mg Tablets repeat every 5 Gumaro Newell Sub minutes up to three tabs, call 911 Atorovastin 1 tabs by Irving F. 40mg Tablets mouth every day Gumaro Newell Aspirin Adult Low Dose 1 by mouth Irving F. every day Gumaro Newell 81mg Tablets DR Combivent Respimat 1 puff 4x day Irving F. Gumaro Newell 20-100mcg/Act Aerosol Spiriva Respimat inhale 2 puffs Unknown by mouth every 2.5mcg/Act Aerosol day Proair HFA 2 puffs every Unknown 108(90Base) 4-6 hours as mcg/Act Aerosol needed for cough Symbicort 1 puff a day Unknown 80-4.5mcg/Act Aerosol Pepcid Complete Unknown Potassium 1 by mouth Unknown 99mg Tablets every day Vitamin C chew 1 tablet Unknown Tablets every day (supplement) Claritin take one tablet Unknown 10mg Tablets by mouth every day as needed Immunizations CPT Code Status Date Vaccine Lot # [id number] Given 06/27/2018 High-Dose, Influenza Virus Vacccine-fluzone 65 and older [id number] Given 06/14/2016 Pneumococcal Conjugate Vacc-13 [id number] 69902 Given 06/14/2016 High-Dose, Influenza Virus Vacccine-fluzone 65 [id number] and older 59555 Given 07/18/2013 Pneumococcal Immunization [id number] 27312 Given 06/20/2011 DO Not Use Split Influenza Virus Vaccine [id number] Given 07/23/2010 DO Not Use Split Influenza Virus Vaccine [id number] 88589 Given 01/05/2010 Tdap Tetanus, W Pertussis [id number] 36982 Given 01/05/2010 H1N1 Virus Vaccine [id number] 58941 Given 08/22/2009 DO Not Use Split Influenza Virus Vaccine [id number] 44774 Given 09/15/2008 Zostivax [id number] 25994 Given 05/20/2008 DO Not Use Split Influenza Virus Vaccine [id number] 24244 Given 07/04/2007 DO Not Use Split Influenza Virus Vaccine [id number] 22632 Given 07/29/2006 DO Not Use Split Influenza Virus Vaccine [id number] 35440 Given 05/05/2005 Pneumococcal Immunization Vital Signs Date Vital Result Comment 06/17/2019 11:03am BP Systolic 118 mmHg BP Diastolic 80 mmHg Heart Rate 60 /min Body Temperature 98.2 F Height 68 inches 5'8" Weight 238.00 lb BMI (Body Mass Index) 36.2 kg/m2 05/28/2019 10:25am BP Systolic 124 mmHg BP Diastolic 70 mmHg Heart Rate 74 /min Body Temperature 98.4 F Respiratory Rate 16 /min O2 % BldC Oximetry 96 % Height 68 inches 5'8" Weight 234.00 lb BMI (Body Mass Index) 35.6 kg/m2 Results Description No Information Available Procedures Date Code Description Status 05/28/2019 93577 Pulse Oximetry Completed 01/25/2011 63563027 Colonoscopy Completed Medical Devices Description No Information Available Encounters Type Date Location Provider Dx Diagnosis Office Visit 05/28/2019 Main Office Ortega Shah.9 Acute upper 10:15a Afnp-C respiratory infection, unspecified R05 Cough Assessments Date Code Description Provider 06/17/2019 H69.81 Other specified disorders of Eustachian Bren Pena, Afnp-C tube, right ear 05/28/2019 J06.9 Acute upper respiratory infection, Bren Pena, Afnp-C unspecified 05/28/2019 R05 Cough Bren Pena, Afnp-C Plan of Treatment 06/17/2019 - Maribel Shah-CH69.81 Other specified disorders of Eustachian tube, right earAllComments:Medication Management Patient Understands medications he's taking? Yes No Are there Barriersto Adherence? Yes No Has the patient been asked about herbal supplements and therapies, and OTC meds? Yes No Care Plan1. Patient has been queried about patient's goals/preferences and functional/lifestyle goals at relevant visits. If relevant, describe: na2. Treatment goals asexplained to the patient: aboveresolution of sx 3. Are there barriers to meeting treatment goals? Yes No If Yes, please describe:4. Self-Management goals as described to the patient: YesNo will try steroid nasal spray , consider ent if no bettercall if sx worsen Functional Status Description No Information Available Mental Status Description No Information Available Referrals Description No Information Available
--- OUTSIDE RECORDS SUMMARY | 2019-07-24 19:40 | XMS REPORT | Continuity of Care Document ---
:1945 External Reference #:[id number] Author Name Acosta Shah Address [address] [place] [address] Care Team Providers Name Role Phone Malka Staton - Provider Relations Manager Care Team Information Meter Installer And Remover [phone] Steff ENT - Otolaryngology Care Team Information Meter Installer And Remover [phone] Landry Patrick MD - Surgery Care Team Information Meter Installer And Remover [phone] Josue Love MD - Dermatology Care Team Information Meter Installer And Remover [phone] Problems Active Problems Provider Date Benign essential [...] smoker quit 1999 Unknown Smoking Status Reviewed: 05/28/19 Patient is a former smoker quit 1999 [...] CPT Code Status Date Vaccine Lot # [id number] Given 06/27/2018 High-Dose, Influenza Virus Vacccine-fluzone 65 and older [id number] Given 06/14/2016 Pneumococcal Conjugate Vacc-13 [id number] 40299 Given 06/14/2016 High-Dose, Influenza Virus Vacccine-fluzone 65 [id number] and older 57585 Given 07/18/2013 Pneumococcal Immunization [id number] 57336 Given 06/20/2011 DO Not Use Split Influenza Virus Vaccine 41639 Given 07/23/2010 DO Not Use Split Influenza Virus Vaccine [id number] 35227 Given 01/05/2010 Tdap Tetanus, W Pertussis [id number] 01636 Given 01/05/2010 H1N1 Virus Vaccine [id number] 02783 Given 08/22/2009 DO Not Use Split Influenza Virus Vaccine [id number] 39355 Given 09/15/2008 Zostivax [id number] 31940 Given 05/20/2008 DO Not Use Split Influenza Virus Vaccine [id number] 95775 Given 07/04/2007 DO Not Use Split Influenza Virus Vaccine [id number] 88664 Given 07/29/2006 DO Not Use Split Influenza Virus Vaccine [id number] 93069 Given 05/05/2005 Pneumococcal Immunization Vital Signs Date Vital Result Comment 05/28/2019 10:25am BP Systolic 124 mmHg BP Diastolic 70 mmHg Heart Rate 74 /min Body Temperature 98.4 F Respiratory Rate 16 /min O2 % BldC Oximetry 96 % Height 68 inches 5'8" Weight 234.00 lb BMI (Body Mass Index) 35.6 kg/m2 11/29/2018 1:00pm BP Systolic 142 mmHg BP Diastolic 80 mmHg Heart Rate 72 /min Body Temperature 98.1 F Respiratory Rate 16 /min O2 % BldC Oximetry 98 % Height 68 inches 5'8" Weight 226.00 lb BMI (Body Mass Index) 34.4 kg/m2 Results Description No Information Available Procedures Date Code Description Status 01/25/2011 44560055 Colonoscopy Completed Medical Devices Description No Information Available Encounters Type Date Location Provider Dx Diagnosis Office Visit 11/29/2018 1:00p [facility] Office BOBBY Norman R05 Cough Assessments Date Code Description Provider 05/28/2019 J06.9 Acute upper respiratory infection, Bren Pena Maribel-C unspecified 05/28/2019 R05 Cough Bren Pena Maribel-C 11/29/2018 R05 Cough BOBBY Norman Plan of Treatment 05/28/2019 - Maribel Shah-CJ06.9 Acute upper respiratory infection, [id number] CoughFollow up:Followup:. (Follow up)AllNew Medication: Azithromycin 250 mg - 2 po qd for 3 days, then 1 po qd for 4 daysComments: Medication Management Patient Understands medications he's taking? Yes No Are there Barriersto Adherence? Yes No Has the patient been asked about herbal supplements and therapies, and OTC meds? Yes No Care Plan1. Patient has been queried about patient's goals/preferences and functional/lifestyle goals at relevant visits. If relevant, describe: na2. Treatment goals asexplained to the patient: abovesx resolution 3. Are there barriers to meeting treatment goals? Yes No If Yes, please describe:4. Self-Management goals as described to the patient: xYes No your sx appear to be viral in nature , I suggest sx rx using your inhalers as ordered and prn rest and fluids add anti bx if no better through week or sx worsen Functional Status Description No Information Available Mental Status Description No Information Available Referrals Description No Information Available
[2019-07-24 20:04] LABS: Influenza A Molecular NEGATIVE (Negative); Influenza B Molecular NEGATIVE (Negative)
[2019-07-24] MEDS: Acetaminophen TAB* 325 MG PO ONE (20:16)
[2019-07-24 20:44] LABS: Hematocrit 44 % (42-52); Hemoglobin 14.4 g/dL (14.0-18.0); Mean Corpuscular HGB Conc 33 g/dL (31-36); Mean Corpuscular Hemoglobin 30 pg (27-31); Mean Corpuscular Volume 92 fL (80-94); Mean Platelet Volume 8.4 fL (7.4-10.4); Platelet Count 62 10^3/uL (150-450); Red Blood Count 4.74 10^6 /uL (4.18-5.48); Red Cell Distribution Width 16 % (10-15); White Blood Count 11.1 10^3/uL (3.5-10.8)
[2019-07-24 20:57] LABS: Albumin 4.1 g/dL (3.2-5.2); BUN/Creatinine Ratio 18.9 (8-20); CRP High Sensitivity 54.98 mg/L (<2.00); Calcium 9.1 mg/dL (8.6-10.3); EGFR African American 67.5 (>60); EGFR Non-African American 55.7 (>60); Globulin 2.1 g/dL (2-4); Potassium 4.4 mmol/L (3.5-5.0); Total Bilirubin 1.1 mg/dL (0.2-1.0); Total Protein 6.2 g/dL (6.4-8.9)
[2019-07-24 21:01] LABS: ABS Basophils 0.1 10^3/ul (0-0.2); ABS Eosinophils 0.2 10^3/ul (0-0.6); ABS Lymphocytes 5.7 10^3/ul (1.0-4.8); ABS Monocytes 0.3 10^3/ul (0-0.8); ABS Neutrophils 4.8 10^3/ul (1.5-7.7); Eosinophil % 1.4 %; Lymphocyte % 51.3 %; Nucleated Red Blood Cells % 0.2
--- NOTE | 2019-07-24 23:33 | ED ---
HPI Febrile Illness - HPI Summary HPI Summary: Patient is a 73 y/o M presenting to [facility] with chief complaint of fever. He states that two days ago, 07/22/19, he began to feel "unwell". The following day , 07/23/19, he had onset of fever. He states fever has ranged from 101 F to 104 F. Patient took Nyquil with acetaminophen last night. Patient continued to have fever of 104 F today, 07/24/19. He has not taken any medications today. He denies cough, diarrhea, CP, SOB, and abdominal pain but endorses decreased appetite, dysuria, urinary incontinence. He denies Hx of UTI. PMHx of COPD, chronic lymphoid leukemia in remission, and HTN is endorsed. No recent changes to medications are noted. On triage, pain is denied. Home medications and allergies are reviewed. - History of Current Complaint Chief Complaint: EDFever Time Seen by Provider: 07/24/19 22:54 Hx Obtained From: Patient Onset/Duration: Started Days Ago, Still Present Timing: Constant, Lasting Days Current Severity: None - pain denied Pain Intensity: 0 Pain Scale Used: 0-10 Numeric Associated Signs and Symptoms: Dysuria, Other: - denies cough, diarrhea, CP, SOB , and abdominal pain but endorses decreased appetite, dysuria, urinary incontinence - Additional Pertinent History Primary Care Physician: [id number] - Allergy/Home Medications Allergies/Adverse Reactions: Allergies Allergy/AdvReac Type Severity Reaction Status Date / Time allopurinol Allergy Rash Verified 07/24/19 22:33 Penicillins Allergy Rash Verified 07/24/19 22:33 shellfish derived Allergy Hives/Diff. Verified 07/24/19 22:33 Breathing/I tching contrast dye Allergy Severe Hives/Diff. Uncoded 07/24/19 22:33 Breathing/I tching PMH/Surg Hx/FS Hx/Imm Hx Endocrine/Hematology History: Reports: Hx Blood Disorders - CLL Cardiovascular History: Reports: Hx Angina, Hx Coronary Artery Disease, Hx Hypercholesterolemia, Hx Hypertension, Other Cardiovascular Problems/Disorders - hyperlipidemia, has a thoracic anuersym - being monitored Respiratory History: Reports: Hx Chronic Bronchitis, Hx Chronic Obstructive Pulmonary Disease (COPD), Hx Sleep Apnea, Other Respiratory Problems/Disorders - wheezing Denies: Hx Asthma History: Reports: Other Problems/Disorders - BPH Musculoskeletal History: Reports: Hx Arthritis Sensory History: Reports: Hx Cataracts - both, Hx Contacts or Glasses Denies: Hx Hearing Aid Opthamlomology History: Reports: Hx Cataracts - both, Hx Contacts or Glasses Neurological History: Denies: Hx Seizures Psychiatric History: Reports: Hx Anxiety, Hx Depression - RESOLVED - Cancer History Cancer Type, Location and Year: Leukemia-remission 2012 Hx Chemotherapy: Yes - treated x2 1999, 2011 - Surgical History Surgery Procedure, Year, and Place: broken leg . left wrist carpal tunnel release 2002 Hx Anesthesia Reactions: No Infectious Disease History: No Infectious Disease History: Reports: Hx Shingles Denies: Traveled Outside the [place] in Last 30 Days - Family History Known Family History: Positive: Cardiac Disease, Diabetes, Other - CVA - Social History Alcohol Use: None Hx Substance Use: No Substance Use Type: Reports: None Hx Tobacco Use: Yes Smoking Status (MU): Former Smoker Type: Cigarettes Amount Used/How Often: 2 ppd, smoked for 25 years Length of Time of Smoking/Using Tobacco: 25 years Have You Smoked in the Last Year: No Review of Systems Positive: Fever Negative: Chest Pain Negative: Shortness Of Breath, Cough Gastrointestinal: Other - positive - decreased appetite Negative: Abdominal Pain, Diarrhea Positive: dysuria, incontinence - urinary All Other Systems Reviewed And Are Negative: Yes Physical Exam - Summary Physical Exam Summary: General: Well-developed, Well-nourished Male. No acute distress. HEENT: Normocephalic, Atraumatic. Eyes: Conjuctiva normal, PERRL. Ears: TMs within normal limits. Nares: (-) discharge, (-) erythema. Oropharynx: Clear, mucous membranes moist, (-) exudates. Neck: Soft, FROM, (-) lymphadenopathy, (-) thyromegaly, (-) JVD. Cardiovascular: Normal sinus rhythm, (-) murmur. Lungs: Clear to auscultation bilaterally (-) wheezes, (-) rales, (-) rhonchi. Abdomen: Soft, non-tender, non-distended, (-) organomegaly, normal bowel sounds. Back: (-) CVA tenderness Extremities: No edema. Skin: Wet and warm (-) rash. Neuro: Alert and oriented x3, no focal deficits. Psychiatric: Mood normal, affect normal. Triage Information Reviewed: Yes Vital Signs On Initial Exam: Initial Vitals Temp Pulse Resp BP Pulse Ox 101.2 F 110 20 116/75 95 07/24/19 19:26 07/24/19 19:26 07/24/19 19:26 07/24/19 19:26 07/24/19 19:26 Vital Signs Reviewed: Yes Procedures - Sedation Patient Received Moderate/Deep Sedation with Procedure: No Diagnostics - Vital Signs Vital Signs Temp Pulse Resp BP Pulse Ox 07/24/19 22:45 74 102/59 93 07/24/19 22:38 76 95/51 94 07/24/19 22:37 76 94 07/24/19 21:18 99.8 F 100 19 102/63 95 07/24/19 19:26 101.2 F 110 20 116/75 95 - Laboratory Lab Results: Lab Results 07/24/19 07/24/19 07/24/19 Range/Units 19:32 20:34 20:34 WBC 11.1 H (3.5-10.8) 10^3/uL RBC 4.74 (4.18-5.48) 10^6 /uL Hgb 14.4 (14.0-18.0) g/dL Hct 44 (42-52) % MCV 92 (80-94) fL MCH 30 (27-31) pg MCHC 33 (31-36) g/dL RDW 16 H (10-15) % Plt Count 62 L (150-450) 10^3/uL MPV 8.4 (7.4-10.4) fL Neut % (Auto) 43.5 % Lymph % (Auto) 51.3 % Atlantic % (Auto) 3.0 % Eos % (Auto) 1.4 % Baso % (Auto) 0.8 % Absolute Neuts (auto) 4.8 (1.5-7.7) 10^3/ul Absolute Lymphs (auto) 5.7 H (1.0-4.8) 10^3/ul Absolute Monos (auto) 0.3 (0-0.8) 10^3/ul Absolute Eos (auto) 0.2 (0-0.6) 10^3/ul Absolute Basos (auto) 0.1 (0-0.2) 10^3/ul Absolute Nucleated RBC 0.0 10^3/ul Immature Gran % 8.0 (0-9) % Neutrophils % 33.0 % Band Neutrophils % 8.0 (0-8) % Lymphocytes % 41.0 % Reactive Lymphs % 16.0 H (0-6) % Monocytes % 1.0 % Eosinophils % 1.0 % Nucleated RBC % 0.2 Normal RBC Morphology Normal (Normal) Hem Pathologist Commnt Pending Sodium 137 (135-145) mmol/L Potassium 4.4 (3.5-5.0) mmol/L Chloride 105 (101-111) mmol/L Carbon Dioxide 24 (22-32) mmol/L Anion Gap 8 (2-11) mmol/L BUN 24 (6-24) mg/dL Creatinine 1.27 H (0.67-1.17) mg/dL Est GFR ( Amer) 67.5 (>60) Est GFR (Non-Af Amer) 55.7 (>60) BUN/Creatinine Ratio 18.9 (8-20) Glucose 108 H (70-100) mg/dL Lactic Acid (0.5-2.0) mmol/L Calcium 9.1 (8.6-10.3) mg/dL Total Bilirubin 1.10 H (0.2-1.0) mg/dL AST 35 (13-39) U/L ALT 26 (7-52) U/L Alkaline Phosphatase 99 (34-104) U/L C-React Prot High Sens 54.98 H (<2.00) mg/L Total Protein 6.2 L (6.4-8.9) g/dL Albumin 4.1 (3.2-5.2) g/dL Globulin 2.1 (2-4) g/dL Albumin/Globulin Ratio 2.0 (1-3) Influenza A (Rapid) Negative (Negative) Influenza B (Rapid) Negative (Negative) 07/24/19 Range/Units 20:34 WBC (3.5-10.8) 10^3/uL RBC (4.18-5.48) 10^6 /uL Hgb (14.0-18.0) g/dL Hct (42-52) % MCV (80-94) fL MCH (27-31) pg MCHC (31-36) g/dL RDW (10-15) % Plt Count (150-450) 10^3/uL MPV (7.4-10.4) fL Neut % (Auto) % Lymph % (Auto) % Atlantic % (Auto) % Eos % (Auto) % Baso % (Auto) % Absolute Neuts (auto) (1.5-7.7) 10^3/ul Absolute Lymphs (auto) (1.0-4.8) 10^3/ul Absolute Monos (auto) (0-0.8) 10^3/ul Absolute Eos (auto) (0-0.6) 10^3/ul Absolute Basos (auto) (0-0.2) 10^3/ul Absolute Nucleated RBC 10^3/ul Immature Gran % (0-9) % Neutrophils % % Band Neutrophils % (0-8) % Lymphocytes % % Reactive Lymphs % (0-6) % Monocytes % % Eosinophils % % Nucleated RBC % Normal RBC Morphology (Normal) Hem Pathologist Commnt Sodium (135-145) mmol/L Potassium (3.5-5.0) mmol/L Chloride (101-111) mmol/L Carbon Dioxide (22-32) mmol/L Anion Gap (2-11) mmol/L BUN (6-24) mg/dL Creatinine (0.67-1.17) mg/dL Est GFR ( Amer) (>60) Est GFR (Non-Af Amer) (>60) BUN/Creatinine Ratio (8-20) Glucose (70-100) mg/dL Lactic Acid 1.6 (0.5-2.0) mmol/L Calcium (8.6-10.3) mg/dL Total Bilirubin (0.2-1.0) mg/dL AST (13-39) U/L ALT (7-52) U/L Alkaline Phosphatase (34-104) U/L C-React Prot High Sens (<2.00) mg/L Total Protein (6.4-8.9) g/dL Albumin (3.2-5.2) g/dL Globulin (2-4) g/dL Albumin/Globulin Ratio (1-3) Influenza A (Rapid) (Negative) Influenza B (Rapid) (Negative) Result Diagrams: 07/24/19 20:34 07/24/19 20:34 Lab Statement: Any lab studies that have been ordered have been reviewed, and results considered in the medical decision making process. - Radiology CXR Radiology Interpretation Completed By: ED Physician Summary of Radiographic Findings: No infiltrate, no pleural effusion, pending official report. Re-Evaluation - Re-Evaluation First Eval Re-Evaluation Time: 23:52 Change: Improved Comment: Discussed results with the patient and Sx are improved. Discussed symptoms that warrant immediate return to ED. Patient was discharged to home and will follow up with PCP. Course/Dx - Course Course Of Treatment: 73-year-old male presents from home with fever. Dizziness. Fatigued. decreased appetite. patient received Tylenol 975 mg PO. fever went down. Patient feeling better. Workup essentially negative although nondiagnostic. The patient discharged home with presumed viral syndrome. Advised plenty of fluids and rest. Tylenol or ibuprofen as needed. Follow up with PCP. Follow-up sooner for any worsening symptoms. - Diagnoses Provider Diagnoses: Viral syndrome Discharge ED - Sign-Out/Discharge Documenting (check all that apply): Patient Departure - discharge - Discharge Plan Condition: Stable Disposition: HOME Patient Education Materials: Viral Syndrome (ED) Referrals: Irving Newell MD [Primary Care Provider] - 2 Days Additional Instructions: Rest and increase your fluid intake. Take ibuprofen and Tylenol as needed. Please follow up with your primary care physician within two days. Please return to ED for any new or worsening symptoms. - Billing Disposition and Condition Condition: STABLE Disposition: Home - Attestation Statements Document Initiated by Nica: Yes Documenting Scribe: JUAREZ LOZA Provider For Whom Nica is Documenting (Include Credential): LOBO HMEPHILL MD Scribe Attestation: JUAREZ Joiner, scribed for LOBO HEMPHILL MD on 07/25/19 at 0008. Scribe Documentation Reviewed: Yes Provider Attestation: The documentation as recorded by the JUAREZ morales accurately reflects the service I personally performed and the decisions made by me, LOBO HEMPHILL MD Status of Scribnatalie Document: Viewed
[2019-07-24 23:45] VITALS: BP 105/63
[2019-07-24 23:47] LABS: Urine Appearance Clear; Urine Bacteria Absent (Absent); Urine Bilirubin Negative (Negative); Urine Blood Negative (Negative); Urine Color Amber; Urine Glucose Negative (Negative); Urine Ketones Negative (Negative); Urine Nitrite Negative (Negative); Urine Protein 1+(30 mg/dL) (Negative); Urine Red Blood Cell Absent (Absent); Urine Specific Gravity 1.034 (1.010-1.030); Urine Squamous Epithelial Cell Present (Absent); Urine Urobilinogen Negative (Negative); Urine White Blood Cell Trace(0-5/hpf) (Absent)
== END 2019-07-25 00:10 | disposition home or self-care (01) ==
LOC: ED 19:24
DX: B34.9 Viral infection, unspecified (principal); I25.10 Atherosclerotic heart disease of native coronary artery without angina pectoris; E78.00 Pure hypercholesterolemia, unspecified; I10 Essential (primary) hypertension; E78.5 Hyperlipidemia, unspecified; J44.9 Chronic obstructive pulmonary disease, unspecified; C91.11 Chronic lymphocytic leukemia of B-cell type in remission; Z87.891 Personal history of nicotine dependence; Z79.899 Other long term (current) drug therapy; Z88.0 Allergy status to penicillin; Z88.8 Allergy status to other drugs, medicaments and biological substances; Z91.041 Radiographic dye allergy status
CPT/HCPCS: 36415; 71045; 80053; 81003; 81015; 83605; 85025; 85060; 86141; 87040; 87086; 99283; A9270-GY